=== PATIENT | male | born 1990 | race Caucasian/White ===

== ENCOUNTER 2019-09-21 08:42 | Emergency (ER) | payer MEDICARE, MEDICAID, SELFPAY ==
[2019-09-21 08:44] VITALS: BP 155/102; PULSE 112; RESP 17; TEMP 37.1; O2SAT 96; BMI 30.7
--- NOTE | 2019-09-21 08:56 | ED_ITS ---
Entered by Madeleine Bonds, acting as scribe for Mark Sierra MD Sep 21, 2019 08:42 HPI - URI/Sore Throat General: Chief Complaint: Upper Respiratory Infection Stated Complaint: COUGH Time Seen by Provider: 09/21/19 08:54 Source: patient and family Mode of arrival: ambulatory Limitations: no limitations History of Present Illness: MD elicited complaint: cough, sore throat, nasal congestion and sinus pain Onset (ago): day(s) (3-4 days ago) Consistency: constant Severity: moderate Able to tolerate fluids by mouth: Yes Exacerbating factors: nothing Relieving factors: nothing Associated symptoms: Reports cough, nasal congestion and sore throat; Deny abdominal pain, chills, chest pain, diarrhea, fever(s), headache(s), nausea or vomiting Treatments prior to arrival: other (cough syrup from pcp) Review of Systems Const: Denies: fever, chills, body aches or change in appetite Eyes: Denies: blurry vision or eye discomfort ENMT: Reports: nasal congestion Card: Denies: chest pain Resp: Denies: shortness of breath GI: Denies: abdominal pain, nausea, vomiting or diarrhea : Denies: painful urination Musc: Denies: neck pain or back pain Skin/Breast: Denies: rash Neuro: Denies: headache Psych: Denies: depression Ruperto/Lymph: Denies: easy bruising All/Imm: Denies: hives PFSH ED PFSH: Statuses (acute, chronic, etc) shown below reflect problem list status as previously entered and may not be historically accurate Social History Smoking and tobacco status: never smoked Physical Exam Const: COMMON NORMALS: no apparent distress, oriented x3 and healthy appearing HENMT: COMMON NORMALS: normocephalic and head/scalp atraumatic HEAD & SCALP: normocephalic and atraumatic Eye: COMMON NORMALS: PERRL and EOMs intact bilaterally PUPIL: Yes PERRL Neck/C-Spine: COMMON NORMALS: full ROM and supple Chest: COMMONS NORMALS: inspection of chest normal and palpation of chest normal Resp: COMMON NORMALS: normal respiratory effort, no retractions, no use of accessory muscles and clear to auscultation bilaterally AUSCULTATION: clear to auscultation bilaterally Cardio: COMMON NORMALS: regular rate, regular rhythm and no murmurs RATE: regular rate RHYTHM: regular rhythm GI: COMMON NORMALS: normal to inspection, nondistended, normoactive bowel sounds, soft to palpation, non-tender and no masses PALPATION: Yes soft Extremity: COMMON NORMALS: normal to inspection and full ROM Neuro: COMMON NORMALS: oriented x3, moves all extremities and no focal motor deficits Psych: COMMON NORMALS: mental status grossly normal, thought process normal and cooperative THOUGHT PROCESS: normal thought process Skin: COMMON NORMALS: no rashes or lesions noted and no wounds GENERAL SKIN EXAM: no rashes or lesions noted Course Vital Signs: Vital signs: Vital Signs Temperature 98.7 F 09/21/19 08:44 Pulse Rate 99 09/21/19 11:08 Respiratory Rate 17 09/21/19 11:08 Blood Pressure 155/97 09/21/19 11:08 Pulse Oximetry 97 09/21/19 11:08 MDM - URI/Sore Throat MDM Narrative: Medical decision making narrative: Patient presents here with cough congestion along with sore throat that is likely viral in origin. Patient is well-appearing here and x-ray is normal. Strep is negative as well. Patient has no signs of airway involvement. Patient given Decadron is stable for discharge. He is to follow-up with his primary care doctor in 3 to 5 days return if worsening. Lab Data: Labs: Lab Results 09/21/19 Range/Units 09:28 Group A Strep Rapi d Negative (Negative) Imaging Data^: CXR: Attestation: I personally reviewed and interpreted this imaging study as follows: My impression: no acute abnormality Discharge Plan Discharge Patient Disposition: Home, Self-Care Clinical Impression: Upper respiratory infection Qualifiers: URI type: unspecified viral URI Qualified Code(s): J06.9 - Acute upper respiratory infection, unspecified Condition: Stable Discharge Orders: Discharge Order (Routine); Ordered 09/21/19 Ordered By: Mark Sierra Referrals: Surinder Gonzales MD [Family Provider] - Coding Level of Care Code ED Track Template Maker for [facility] The documentation recorded by the Vamshi cueva Bridget Annette, accurately reflects the service I personally performed and the decisions made by Mariela orr Korby, MD Sep 21, 2019 08:42
--- NOTE | 2019-09-21 08:59 | XR_ITS ---
WS: [id number] Portable AP upright chest, 09/21/2019 Clinical Data: cough/congestion Comparison: PA chest, 06/23/2016 Findings: No nodules, masses or effusions are seen. The heart is normal. The pulmonary vascularity is not increased. No pneumonia or pneumothorax is seen. XR/XR chest 1V portable [id number] Impression: Negative chest.
[2019-09-21] MEDS: acetaminophen 325 mg Tablet 650 MG PO (10:00)
[2019-09-21 10:10] LABS: Rapid Strep A Test Negative (Negative)
[2019-09-21] MEDS: dexamethasone 10 mg/mL INJ IM (11:06)
[2019-09-21 11:08] VITALS: BP 155/97; PULSE 99; RESP 17; O2SAT 97
== END 2019-09-21 11:21 | disposition home or self-care (01) ==
PROVIDERS: Emergency Provider Emergency Medicine; Family Provider Family Medicine
DX: J06.9 Acute upper respiratory infection, unspecified (principal)
CPT/HCPCS: 71045; 87081; 87880; 96372; 99282; 99284; J1100

== ENCOUNTER → 2020-05-08 11:00 | Outpatient (BNVA) | payer MEDICARE, MEDICAID, SELFPAY | PROVIDERS: Family Provider Family Medicine; PCP Family Medicine; Visit Provider Internal Medicine | DX: K52.9 Noninfective gastroenteritis and colitis, unspecified (principal); R19.8 Other specified symptoms and signs involving the digestive system and abdomen | CPT/HCPCS: 80053; 85025; 85651; 86140 ==

== ENCOUNTER 2020-05-09 10:28 | Outpatient (CLI) | payer MEDICARE, MEDICAID, SELFPAY | END 2020-05-09 10:29 | disposition home or self-care (01) | LOC: LAB 10:31 | PROVIDERS: PCP Family Medicine; Visit Provider Internal Medicine | DX: K52.9 Noninfective gastroenteritis and colitis, unspecified (principal); R19.8 Other specified symptoms and signs involving the digestive system and abdomen | CPT/HCPCS: 83993; 87205; 87506 ==

== ENCOUNTER 2020-05-21 10:02 | Outpatient (CLI) | payer MEDICARE, MEDICAID, SELFPAY ==
--- NOTE | 2020-05-21 11:30 | CT_ITS ---
WS: [id number] CT ABDOMEN PELVIS TECHNIQUE: Contrast-enhanced CT of the abdomen and pelvis with coronal and sagittal reformatted image s. CLINICAL INFORMATION: R/O IBD COMPARISON: 4 ,019 DLP: 1276.[address] scans at [facility] use at least one of these dose optimization techniques: automat ed exposure control; mA and/or kV adjustment per patient size (includes targeted exams where dose is matched to clinical indication); or iterative reconstruction. FINDINGS: Normal liver parenchyma enhancement. Normal gallbladder. Normal portal vein and splenic vein. Normal pancreas. Spleen is normal in appearance. Normal GE junction. Lung bases are well aerated. Adrenal glands are normal. Normal renal parenchymal enhancement. No hydronephrosis. Ureters are decom pressed. Normal sigmoid colon. No evidence of small or large bowel obstruction. Very mild thickening and induration in the transvers e colon can be seen with infectious or inflammatory colitis. Small and large bowel are otherwise norm al in appearance. No abdominal or pelvic lymphadenopathy. No inguinal lymphadenopathy. No free fluid in the pelvis. Mild disc bulging L5-S1 with bilateral pars defects. No anterolisthesis. Serpiginous areas of sclerosis in the femoral heads bilaterally unchanged likely due to avascular nec rosis. CT/CT abdomen pelvis w con* [id number] IMPRESSION: 1. Mild thickening of the transverse colon with slight induration can be seen with mild infectious or inflammatory colitis. Colon is decompressed. 2. No evidence of small or large bowel obstruction. Small and large bowel are otherwise normal 3. No free fluid in the pelvis. 4. No abdominal or pelvic lymphadenopathy. 5. Chronic bilateral pars defects L5-S1. No anterolisthesis. 6. Serpiginous areas of sclerosis in the femoral heads bilaterally unchanged l ikely due to avascular necrosis.
[2020-05-21] MEDS: iohexol 300 mg/mL 100 mL Btl IV (11:34)
== END 2020-05-21 10:03 | disposition home or self-care (01) ==
LOC: RADWPI 10:09
PROVIDERS: Family Provider Family Medicine; PCP Family Medicine; Visit Provider Internal Medicine
DX: R19.8 Other specified symptoms and signs involving the digestive system and abdomen (principal)
CPT/HCPCS: 74177; Q9967

== ENCOUNTER → 2020-05-28 14:02 | Outpatient (BNVA) | payer MEDICARE, MEDICAID, SELFPAY | PROVIDERS: Family Provider Family Medicine; PCP Family Medicine; Referring Provider Family Medicine; Visit Provider Orthopaedic Surgery | DX: M87.88 Other osteonecrosis, other site (principal); M25.552 Pain in left hip; M25.551 Pain in right hip | CPT/HCPCS: 73522; 73523 ==

== ENCOUNTER 2020-06-11 14:33 | Outpatient (CLI) | payer MEDICARE, MEDICAID, SELFPAY ==
--- NOTE | 2020-06-11 15:15 | MR_ITS ---
WS: [id number] INDICATION: Bilateral hip pain for 2 years. AVN. TECHNIQUE: MRI bilateral hips without gadolinium enhancement. Axial T1, axial T2, coronal T1, coronal STIR, sagittal T2 and sagittal T1 imaging. FINDINGS: Correlation prior CT abdomen pelvis May 21, 2020. Serpiginous areas of bone marrow signal abnormality in both femoral heads bilaterally subchondral in location. This corresponds to the sclerotic areas seen on the CT abdomen pelvis and radiograph. Small amount of associated T2 hyperintensity. Appearance most consistent with avascular necrosis. No evide nce of subchondral collapse. Articular cartilage appears relatively well-preserved. Bone marrow signa l in the remainder of the femoral head and neck appears normal. Normal bone marrow signal in the acetabulum and pubic symphysis. Normal pubic rami. Normal bone marro w signal in the visualized sacrum. Proximal femoral shafts are normal in appearance. Normal visualize d sigmoid colon. No pelvic or inguinal lymphadenopathy. MR/MR hips BI wo con [id number] IMPRESSION: 1. Serpiginous decreased T1 and increased T2 signal abnormality involving the femoral heads in a symmetric fashion corresponds to the prior imaging findings most compatible with avascular necrosis. 2. No evidence of subchondral articular surface collapse. Articular cartilage appears relatively well-preserved. 3. Otherwise no signal abnormalities in the femoral necks or proximal femurs. Normal acetabulum. 4. Normal bone marrow signal in the visualized pelvic bony structures and sacr um. 5. No other significant findings.
== END 2020-06-11 14:34 | disposition home or self-care (01) ==
LOC: RADSHAW 14:37
PROVIDERS: PCP Family Medicine; Visit Provider Orthopaedic Surgery
DX: M87.059 Idiopathic aseptic necrosis of unspecified femur (principal); M25.552 Pain in left hip; M25.551 Pain in right hip
CPT/HCPCS: 73721

== ENCOUNTER → 2020-09-11 07:50 | Outpatient (BNVA) | payer MEDICARE, MEDICAID, SELFPAY | PROVIDERS: PCP Family Medicine; Visit Provider Internal Medicine | DX: K52.9 Noninfective gastroenteritis and colitis, unspecified (principal); R19.8 Other specified symptoms and signs involving the digestive system and abdomen; Z01.812 Encounter for preprocedural laboratory examination | CPT/HCPCS: 82784; 83516; 84443; 85651 ==

== ENCOUNTER → 2020-09-15 10:22 | Outpatient (BNVA) | payer MEDICARE, MEDICAID, SELFPAY | PROVIDERS: PCP Family Medicine; Visit Provider Internal Medicine | DX: Z01.812 Encounter for preprocedural laboratory examination (principal); Z20.828 Contact with and (suspected) exposure to other viral communicable diseases | CPT/HCPCS: 87635 ==

== ENCOUNTER → 2020-09-17 11:28 | Outpatient (BNVA) | payer MEDICARE, MEDICAID, SELFPAY | PROVIDERS: PCP Family Medicine; Visit Provider Internal Medicine | DX: J06.9 Acute upper respiratory infection, unspecified (principal) | CPT/HCPCS: 87635 ==

== ENCOUNTER 2020-09-29 07:15 | Day surgery (SDC) | payer MEDICARE, MEDICAID, SELFPAY ==
[2020-09-25 14:00] VITALS: BMI 31.4
[2020-09-29 08:02] VITALS: BP 140/107; PULSE 96; RESP 16; TEMP 36.8; O2SAT 100
[2020-09-29] MEDS: sodium chloride 0.9% 1,000 ML 30 ML IV (08:12)
--- NOTE | 2020-09-29 08:22 | W.PM.OPSUD ---
Surgery/Procedure H&P Update DATE OF PROCEDURE: September 29, 2020 DATE H&P PERFORMED: 09/11/20 PREOP DIAGNOSIS: dbl PLANNED PROCEDURE: Operation Date: 09/29/20 09:00 Proposed Procedures p EGD [id number] K52.9(Bilateral) - Leonides Shelley MD s Colonoscopy(Not Applicable) - Leonides Shelley MD
[2020-09-29] MEDS: midazolam 1 mg/mL INJ 2 mL 2 MG IVP (08:34)
--- NOTE | 2020-09-29 08:49 | ANES.PREANE2 ---
Pre-Anesthetic Assessment Pre-Anesthetic Assessment: Height/Weight: Height 1.78 m Weight 99.337 kg Temp Pulse Resp BP Pulse Ox 98.2 F 96 16 140/107 100 09/29/20 08:02 09/29/20 08:02 09/29/20 08:02 09/29/20 08:02 09/29/20 08:02 Preop Diagnosis: dbl Proposed Procedure: Operation Date: 09/29/20 09:00 Proposed Procedures p EGD [id number] K52.9(Bilateral) - Leonides Shelley MD s Colonoscopy(Not Applicable) - Leonides Shelley MD Was Beta Carlos taken within 24 hours: N/A Last intake: Intake Last Liquid Date 09/28/20 Last Liquid Time 21:00 Last Solid Date 09/28/20 Last Solid Time 06:00 Social: Social History: No alcohol and No tobacco Exam: Pre-Anes Outpt Exam: alert, oriented x 3, clear to auscultation bilaterally and regular rate & rhythm Airway: Submandibular: WNL Cervical ROM: WNL MP: 2 Dentition: Full CV/HEM: CV/HEM: HTN GI: GI: GERD Comments: Chronic diarrhea, IBS Metabolic: Metabolic: Morbid obesity Anesthetic Plan: ASA status: 3 Anesthesia: MAC Risk of > 500 ml blood loss (7ml/kg in children): No Meds/Allergies Current Medications: Current Medications Generic Name Dose Route Start Last Admin Trade Name Freq PRN Reason Stop Dose Admin Sodium Chloride 1,000 mls @ 30 ml s/hr 09/29/20 08:00 09/29/20 08:12 Sodium Chloride 0.9% IV 09/30/20 07:59 30 mls/hr .Q24H JASSON Administration Midazolam HCl 2 mg 09/29/20 07:55 09/29/20 08:34 Midazolam 1 Mg/M l Inj 2 Ml IVP 2 mg Q5M PRN Administration Preop Anxiety PFSH Anesthesia PFSH: Medical History (Updated 09/11/20 @ 10:25 by Leonides Shelley MD) Allergic rhinitis GERD (gastroesophageal reflux disease) H/O Helicobacter infection H/O methicillin resistant Staphylococcus aureus Low back pain Surgical History H/O circumcision H/O colonoscopy 07/29/16 Recheck in 10 years H/O esophagogastroduodenoscopy 07/29/16 Family History Other Adopted Social History Smoking and tobacco status: never smoked Alcohol intake: never Adopted: Yes Lives independently: Yes Marital status: Single Current occupational status: disabled History of recent travel: No Data Anesthesia Cardiac Studies: No Data to Display
[2020-09-29 09:43] VITALS: BP 129/94; PULSE 107; RESP 14; TEMP 36.6; O2SAT 96
[2020-09-29 10:08] VITALS: BP 133/102; PULSE 93; RESP 18; TEMP 36.6; O2SAT 99
--- NOTE | 2020-09-29 10:42 | ANE.PACU2 ---
Inpatient post-anesthesia follow up: Airway intact: Yes Vital signs: Temperature 97.8 F Pulse Rate 93 Respiratory Rate 18 Blood Pressure 133/102 Pulse Oximetry 99 Oxygen Delivery Me thod Room Air Oxygen Flow Rate 0 Fraction of Inspir ed Oxygen Hydration adequate: Yes Mental status: Baseline
--- NOTE | 2020-09-29 11:37 | ANE.PACU2 ---
Inpatient post-anesthesia follow up: Airway intact: Yes Vital signs: Temperature 97.8 F Pulse Rate 93 Respiratory Rate 18 Blood Pressure 133/102 Pulse Oximetry 99 Oxygen Delivery Me thod Room Air Oxygen Flow Rate 0 Fraction of Inspir ed Oxygen Hydration adequate: Yes Nausea and vomiting: No Pain level: 1 Mental status: Baseline
== END 2020-09-29 10:23 | disposition home or self-care (01) ==
PROVIDERS: PCP Family Medicine; Visit Provider Internal Medicine
PROC: 0DJ08ZZ Inspection of Upper Intestinal Tract, Via Natural or Artificial Opening Endoscopic (ICD-10-PCS; CPT 43235; principal; 2020-09-29 09:00)
PROC: 0DJD8ZZ Inspection of Lower Intestinal Tract, Via Natural or Artificial Opening Endoscopic (ICD-10-PCS; CPT 45378; 2020-09-29 09:00)
DX: R19.8 Other specified symptoms and signs involving the digestive system and abdomen (principal); K52.9 Noninfective gastroenteritis and colitis, unspecified; I10 Essential (primary) hypertension; K21.9 Gastro-esophageal reflux disease without esophagitis; E66.01 Morbid (severe) obesity due to excess calories; Z68.31 Body mass index [BMI] 31.0-31.9, adult
CPT/HCPCS: 12345; 43239; 45380; 82274; 83630; 87493; 87506; 88305; J2250; J2704; J7030

== ENCOUNTER → 2022-01-21 13:12 | Outpatient (BNVA) | payer MEDICARE, MEDICAID, SELFPAY | PROVIDERS: PCP Family Medicine; Visit Provider Surgery | DX: R10.9 Unspecified abdominal pain (principal); K58.9 Irritable bowel syndrome, unspecified; R19.8 Other specified symptoms and signs involving the digestive system and abdomen | CPT/HCPCS: 99213 ==

== ENCOUNTER 2022-03-01 08:25 | Outpatient (CLI) | payer MEDICARE, MEDICAID, SELFPAY ==
--- NOTE | 2022-03-01 08:30 | US_ITS ---
WS: [id number] RIGHT UPPER QUADRANT ULTRASOUND HISTORY: chronic diarrhea COMPARISON: CT 05/21/2020 and prior ultrasound 10/06/2018 Liver: 15.8 cm in length. Normal size liver with coarse heterogeneous echotexture. Focal fatty sparin g adjacent to the gallbladder. There is an additional hypoechoic nodule in the LEFT lobe of the liver measuring 1.4 x 1.3 x 1.8 cm. No increased vascularity. This was not identified on prior imaging sintia dies. Portal Vein: Normal hepatopetal flow with monophasic waveform. Gallbladder: Normally distended gallbladder with no stones or wall thickening. CBD: 0.4 cm Pancreas: Not well visualized. Right kidney: 9.2 cm in length. Normal size and echogenicity. No hydronephrosis or mass. Aorta and IVC: Unremarkable abdominal aorta and IVC. No ascites. US/US gall bladder [id number] IMPRESSION: 1. Normal gallbladder. 2. Hypoechoic nodule with a maximum diameter 1.8 cm LEFT lobe of the liver. Ne eds further evaluation. This was not present on prior imaging studies. Recommen d follow-up CT abdomen and pelvis with contrast. Early metastatic neoplasm need s to be excluded. 3. No bile duct dilatation. 4. Focal fatty sparing adjacent to the gallbladder.
== END 2022-03-01 08:26 | disposition home or self-care (01) ==
PROVIDERS: Visit Provider Surgery
DX: K52.9 Noninfective gastroenteritis and colitis, unspecified (principal); R10.9 Unspecified abdominal pain
CPT/HCPCS: 76705

== ENCOUNTER → 2022-03-03 09:29 | Outpatient (BNVA) | payer MEDICARE, MEDICAID, SELFPAY | PROVIDERS: PCP Family Medicine; Visit Provider Nurse Practitioner Family | DX: M87.051 Idiopathic aseptic necrosis of right femur (principal); M87.052 Idiopathic aseptic necrosis of left femur; M79.2 Neuralgia and neuritis, unspecified; M25.551 Pain in right hip; M25.552 Pain in left hip | CPT/HCPCS: 73523; 99214 ==

== ENCOUNTER 2022-03-18 09:09 | Outpatient (CLI) | payer MEDICARE, MEDICAID, SELFPAY ==
--- NOTE | 2022-03-18 09:30 | MR_ITS ---
WS: [id number] MRI LUMBAR SPINE NONCONTRAST TECHNIQUE: Sagittal T1, T2 and STIR imaging. Axial T1 and T2 imaging. CLINICAL INFORMATION: Bilateral hip pain COMPARISON: None. FINDINGS: Mild lumbar curve. No acute compression. No high-grade central canal stenosis. Chronic bilateral pars defects L5-S1. No anterolisthesis.Disc bulging worse L5-S1 with a shallow LEFT pericentral protrusio n and small annular fissure. L1-L2: Mild facet arthropathy. Spinal canal and foramen are patent. L2-L3: Mild facet arthropathy. Spinal canal and foramen are patent. L3-L4: No significant disc bulging. Mild facet arthropathy. Spinal canal and foramen are patent. L4-L5: No significant disc bulging. Mild facet arthropathy. Spinal canal and foramen are patent. L5-S1: Shallow LEFT pericentral protrusion with a small annular fissure. Slight impingement traversin g LEFT S1 nerve root in the subarticular recess. Eccentric disc bulging results in mild bilateral for aminal narrowing with slight contact of the exiting RIGHT greater than LEFT L5 nerve roots. Mild face t arthropathy. Visualized pelvic bony structures: Normal. Paravertebral soft tissues: Normal. MR/MR lumbar spine wo con* [id number] IMPRESSION: 1. Mild lumbar curve. No acute compression. No high-grade central canal stenos is. 2. Chronic bilateral pars defects L5-S1. No anterolisthesis. 3. Shallow LEFT pericentral protrusion L5-S1 with a small annular fissure. Thi s impinges the traversing LEFT S1 nerve root in the subarticular recess. Recomm end correlation LEFT S1 nerve root symptoms. 4. Eccentric disc bulging L5-S1 contacts the exiting RIGHT greater than LEFT L 5 nerve roots. 5. Mild facet arthropathy worse at L3-L4 and L5-S1. 6. No other significant findings.
== END 2022-03-18 09:10 | disposition home or self-care (01) ==
PROVIDERS: PCP Family Medicine; Visit Provider Nurse Practitioner Family
DX: M25.551 Pain in right hip (principal); M25.552 Pain in left hip; M51.27 Other intervertebral disc displacement, lumbosacral region; M47.816 Spondylosis without myelopathy or radiculopathy, lumbar region; M47.817 Spondylosis without myelopathy or radiculopathy, lumbosacral region
CPT/HCPCS: 72148

== ENCOUNTER 2022-03-26 13:29 | Outpatient (CLI) | payer MEDICARE, MEDICAID, SELFPAY ==
[2022-03-26] MEDS: barium sulfate 450 mL Oral Susp PO (14:15)
[2022-03-26] MEDS: iohexol 350 mg/mL 100 mL Btl IV (15:18)
--- NOTE | 2022-03-26 15:30 | CT_ITS ---
WS: [id number] CT ABDOMEN AND PELVIS WITH CONTRAST HISTORY: Liver Mass TECHNIQUE: Imaging performed of the abdomen and pelvis with IV contrast. Single phase imaging of the abdomen. Coronal and sagittal reformats are submitted. All CT scans at [facility] use at [facility] one of these dose optimization techniques: automated exposure control; mA and/or kV adjustment per patient size (includes targeted exams where dose is matched to clinical indication); or iterative re construction. IV CONTRAST: Omnipaque 350; 95 mL IV. Oral contrast: No DLP: 1460.73 mGy.cm COMPARISON: Gallbladder ultrasound 03/01/2022. Prior CT 05/21/2020. Lower thorax: Lung bases are clear. Heart is normal size. Small hiatal hernia. Liver/biliary system: Normal size liver. The previously described hypoechoic nodule on the recent ult rasound is not identified by CT evaluation. Suspect this was an area of hepatic steatosis or focal fa tty sparing which is not evident on the CT. No bile duct dilatation. Normal portal vein. Gallbladder: Normal. No gallstones or wall thickening. No pericholecystic fluid. Pancreas: Normal size pancreas and pancreatic duct. No adjacent inflammation. Spleen: Normal size spleen. No mass or infarct. Adrenal glands: Normal. Right kidney: Normal. Left kidney: Normal. Aorta: Normal. Lymphadenopathy: None. Small subcentimeter RIGHT lower quadrant lymph nodes. Similar to the prior sintia dy from 2019. Free fluid: None. GI tract: Unremarkable. Abdominal wall: Fat containing umbilical hernia. Pelvis: No free fluid or adenopathy within the pelvis. Bones: Bilateral pars defects at L5. 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 Similar to the prior study from 05/21/2020. CT/CT abdomen pelvis w con* [id number] IMPRESSION: 1. Recently described ultrasound hepatic abnormality is not identified by CT. Favor this is probably normal variable changes of hepatic steatosis. No mass or bile duct dilatation. 2. No adrenal mass. 3. No ascites or adenopathy.
== END 2022-03-26 13:30 | disposition home or self-care (01) ==
PROVIDERS: PCP Family Medicine; Visit Provider Surgery
DX: R16.0 Hepatomegaly, not elsewhere classified (principal)
CPT/HCPCS: 74177

== ENCOUNTER → 2022-04-06 08:03 | Outpatient (BNVA) | payer MEDICARE, MEDICAID, SELFPAY | PROVIDERS: PCP Family Medicine; Visit Provider Orthopaedic Surgery | DX: M54.50 Low back pain, unspecified (principal) | CPT/HCPCS: 72110; 99204 ==

== ENCOUNTER → 2022-04-27 08:57 | Outpatient (BNVA) | payer MEDICARE, MEDICAID, SELFPAY | PROVIDERS: PCP Family Medicine; Visit Provider Anesthesiology Pain Medicine | DX: M48.062 Spinal stenosis, lumbar region with neurogenic claudication (principal); M51.16 Intervertebral disc disorders with radiculopathy, lumbar region; M47.816 Spondylosis without myelopathy or radiculopathy, lumbar region; M79.605 Pain in left leg; M79.604 Pain in right leg | CPT/HCPCS: 99205 ==

== ENCOUNTER 2022-05-04 07:28 | Outpatient (CLI) | payer MEDICARE, MEDICAID, SELFPAY ==
--- NOTE | 2022-05-04 08:00 | NM_ITS ---
WS: [id number] NUCLEAR MEDICINE HIDA SCAN CLINICAL INFORMATION: abd pain TECHNIQUE: Following intravenous administration of 8.4 mCi of technetium 99m mebrofenin, images of th e abdomen were obtained over the course of 60 minutes. Next, gallbladder ejection fraction was determ ined by obtaining preprandial and one-hour postprandial images of the gallbladder following oral emilie stion of Ensure. COMPARISON: 3 ,019 FINDINGS: Normal hepatic uptake at 5 minutes. Normal hepatic excretion. Gallbladder is visualized by 10-15 sai ana. No evidence of acute cholecystitis. Normal common bile duct and small bowel activity. Gallbladder ejection fraction 86% within normal deleon its. No evidence of chronic cholecystitis. NM/NM hepatobiliary w phar* [id number] IMPRESSION: 1. No evidence of acute or chronic cholecystitis. 2. Gallbladder ejection fraction 86% within normal limits.
== END 2022-05-04 07:29 | disposition home or self-care (01) ==
PROVIDERS: PCP Family Medicine; Visit Provider Surgery
DX: R10.9 Unspecified abdominal pain (principal)
CPT/HCPCS: 78227; A9537

== ENCOUNTER → 2022-05-19 12:58 | Outpatient (BNVA) | payer MEDICARE, MEDICAID, SELFPAY | PROVIDERS: PCP Family Medicine; Visit Provider Surgery | DX: Z09 Encounter for follow-up examination after completed treatment for conditions other than malignant neoplasm (principal); K52.9 Noninfective gastroenteritis and colitis, unspecified | CPT/HCPCS: 99213 ==

== ENCOUNTER → 2022-07-27 13:10 | Outpatient (BNVA) | payer MEDICARE, MEDICAID, SELFPAY | PROVIDERS: PCP Family Medicine; Visit Provider Anesthesiology Pain Medicine | DX: M54.16 Radiculopathy, lumbar region (principal); M48.062 Spinal stenosis, lumbar region with neurogenic claudication | CPT/HCPCS: 64483; 64484 ==

== ENCOUNTER 2022-08-04 09:01 | Emergency (ER) | payer MEDICARE, MEDICAID, SELFPAY ==
[2022-08-04] VITALS (36 sets, daily range): BP systolic 120–155; BP diastolic 80–113; PULSE 84–109; RESP 15–18; TEMP 36.6–36.7; O2SAT 94–98; BMI 32.3
[2022-08-04 11:10] LABS: Basophils # 0.1 10^3/uL (0.0-0.1); Basophils % 0.7 %; Eosinophils # 0.1 10^3/uL (0.0-0.8); Eosinophils % 1.1 %; Hematocrit 49.4 % (42.0-52.0); Hemoglobin 16.5 g/dL (11.7-16.6); Lymphocytes # 3.7 10^3/uL (0.8-4.8); Lymphocytes % 45.6 %; Mean Corpuscular HGB Conc 33.4 g/dL (30.0-36.0); Mean Corpuscular Hemoglobin 29.8 pg (28.0-34.0); Mean Corpuscular Volume 89.3 fl (80-94); Mean Platelet Volume 10.2 fL (7.4-10.4); Monocytes # 0.8 10^3/uL (0.2-0.9); Monocytes % 10.1 %; Neutrophils # 3.41 10^3/uL (1.8-7.7); Nucleated Red Blood Cells % 0 %; Platelet Count 287 10^3/cmm (130-400); Red Blood Count 5.53 10^6/uL (4.1-5.3); White Blood Count 8.1 10^3/uL (4.0-10.0)
[2022-08-04 11:29] LABS: Albumin Level 4.9 g/dL (3.5-5.2); Alkaline Phosphatase 83 U/L (40-130); Anion Gap 14.6 (5-19); Aspartate Amino Transferase 22 U/L (0-40); Blood Urea Nitrogen 13 mg/dL (6-20); Calcium 10.2 mg/dL (8.5-10.5); Carbon Dioxide 29 mmol/L (22-29); Chloride 100 mmol/L (98-107); Globulin 3.5 g/dL (1.3-4.6); Glomerular Filtration Rate 85.5 mL/min (90-130); Glucose 92 mg/dL (65-115); Lipase 31 U/L (13-60); Osmolality Calculated 288 mOsm/kg (285-295); Potassium 4.6 mmol/L (3.5-5.1); Sodium 139 mmol/L (136-145); Total Bilirubin 0.4 mg/dL (0.15-1.2); Total Protein 8.4 g/dL (6.6-8.7)
--- NOTE | 2022-08-04 11:32 | ED_ITS ---
HPI - Abdominal Pain General: Chief Complaint: Abdominal Pain Stated Complaint: n/v/abd pain Time Seen by Provider: 08/04/22 10:56 Source: patient Mode of arrival: ambulatory History of Present Illness: 32-year-old male presents emergency room for abdominal discomfort and diarrhea. He had a colonoscopy earlier this week he states since then he has been having bloating abdominal discomfort and frequent diarrhea denies any medic easy melena hematemesis coffee-ground emesis no fever sweats or chills no dysuria urgency or frequency. MD elicited complaint: abdominal pain Pertinent past history: none Onset (ago): minute(s) Pain Consistency: constant Location: Diffuse Severity: mild Quality: cramping Radiation: none Exacerbating factors: nothing Relieving factors: nothing Associated Symptoms: Reports GI cramping, diarrhea and poor appetite; Denies anorexia, belching, bloating, change in bowel habits, change in stool character, chills, coffee ground emesis, constipation, dyspepsia, dysuria, excessive flatus, fever(s), heartburn, hematochezia, hematuria, hematemesis, fecal incontinence, loose stools, melena, nausea, syncope and vomiting Review of Systems Const: Denies: fever(s), chills, fatigue or malaise ENMT: Denies: throat pain, ear or mastoid pain, nasal discharge or nasal congestion Card: Denies: syncope Resp: Denies: dyspnea, productive cough or non-productive cough GI: Reports: diarrhea and GI cramping; Denies: nausea, vomiting, hematemesis, coffee ground emesis, heartburn, constipation, bloating, belching, excessive flatus, fecal incontinence, change in bowel habits, change in stool character, hematochezia or melena : Denies: dysuria, urinary frequency, urinary urgency or hematuria Musc: Denies: neck pain or back pain Skin/Breast: Denies: rash or pruritus PFSH ED PFSH: Medical History (Updated 08/04/22 @ 13:16 by Souleymane Montejo DO) Allergic rhinitis GERD (gastroesophageal reflux disease) H/O Helicobacter infection H/O methicillin resistant Staphylococcus aureus Low back pain Surgical History H/O circumcision H/O colonoscopy 07/29/16 Recheck in 10 years H/O esophagogastroduodenoscopy 07/29/16 Family History Other Adopted Social History Smoking and tobacco status: never smoked Second hand smoke exposure: No Alcohol intake: never Adopted: Yes Lives independently: Yes Marital status: Single Current occupational status: disabled History of recent travel: No Physical Exam Const: GENERAL APPEARANCE: cooperative and comfortable ORIENTATION/CONSCIOUSNESS: Yes awake, Yes oriented to person, Yes oriented to place and Yes oriented to time HENMT: COMMON NORMALS: normocephalic, atraumatic and hearing grossly normal bilaterally HEAD & SCALP: normocephalic and atraumatic Resp: COMMON NORMALS: normal respiratory effort, No retractions, No use of accessory muscles and clear to auscultation bilaterally AUSCULTATION: clear to auscultation bilaterally Cardio: COMMON NORMALS: regular rate, regular rhythm and No murmurs present (Cardio) RATE: regular rate RHYTHM: regular rhythm GI: COMMON NORMALS: No hepatosplenomegaly present AUSCULTATION: Yes normoactive bowel sounds PALPATION: Yes Tenderness to palpation present (GI), No Guarding due to palpation present (GI) and Yes No hepatosplenomegaly present Extremity: COMMON NORMALS: normal to inspection, capillary refill normal, no clubbing, cyanosis or edema, no calf tenderness and no pedal edema Neuro: SENSORIUM/ORIENTATION: Yes oriented to person, Yes oriented to place and Yes oriented to time Skin: COMMON NORMALS: no rashes or lesions noted GENERAL SKIN EXAM: no rashes or lesions noted Course Vital Signs: Vital signs: Vital Signs Temperature 97.8 F 08/04/22 10:52 Pulse Rate 95 08/04/22 10:52 Respiratory Rate 18 08/04/22 10:52 Blood Pressure 136/103 08/04/22 12:50 Pulse Oximetry 96 08/04/22 12:50 Oxygen Delivery Me thod 08/04/22 10:52 MDM - Abdominal Pain Medical Decision Making Exam unremarkable CT and labs no significant findings reviewed with the patient. Discharge home clear liquid diet for 24 to 48 hours and advance as tolerated use Bentyl as needed return if is further problems Medical Records I reviewed the patient's medical records. Lab Data I reviewed the patient's lab results. 08/04/22 11:03 08/04/22 11:03 Labs/Radiology: Radiology Impressions Abdomen/Pelvis CT 08/04/22 11:32 IMPRESSION: No acute abdominal or pelvic findings. Laboratory Results WBC 8.1 10^3/uL (4.0-10.0) 08/04/22 11:03 RBC 5.53 10^6/uL (4.1-5.3) H 08/04/22 11:03 Hgb 16.5 g/dL (11.7-16.6) 08/04/22 11:03 Hct 49.4 % (42.0-52.0) 08/04/22 11:03 MCV 89.3 fl (80-94) 08/04/22 11:03 MCH 29.8 pg (28.0-34.0) 08/04/22 11:03 MCHC 33.4 g/dL (30.0-36.0) 08/04/22 11:03 RDW 12.0 % (12.1-15.1) L 08/04/22 11:03 Plt Count 287 10^3/cmm (130-400) 08/04/22 11:03 MPV 10.2 fL (7.4-10.4) 08/04/22 11:03 Neut % (Auto) 42.0 % 08/04/22 11:03 Lymph % (Auto) 45.6 % 08/04/22 11:03 [place] % (Auto) 10.1 % 08/04/22 11:03 Eos % (Auto) 1.1 % 08/04/22 11:03 Baso % (Auto) 0.7 % 08/04/22 11:03 Neut # (Auto) 3.41 10^3/uL (1.8-7.7) 08/04/22 11:03 Lymph # (Auto) 3.7 10^3/uL (0.8-4.8) 08/04/22 11:03 [place] # (Auto) 0.8 10^3/uL (0.2-0.9) 08/04/22 11:03 Eos # (Auto) 0.1 10^3/uL (0.0-0.8) 08/04/22 11:03 Baso # (Auto) 0.1 10^3/uL (0.0-0.1) 08/04/22 11:03 Nucleated RBC % (auto) 0 % 08/04/22 11:03 Nucleated RBCs # 0.0 /100WBC 08/04/22 11:03 Sodium 139 mmol/L (136-145) 08/04/22 11:03 Potassium 4.6 mmol/L (3.5-5.1) 08/04/22 11:03 Chloride 100 mmol/L (98-107) 08/04/22 11:03 Carbon Dioxide 29 mmol/L (22-29) 08/04/22 11:03 Anion Gap 14.6 (5-19) 08/04/22 11:03 BUN 13 mg/dL (6-20) 08/04/22 11:03 Creatinine 1.0 mg/dL (0.7-1.2) 08/04/22 11:03 GFR Calculation 85.5 mL/min (90-130) L 08/04/22 11:03 Glucose 92 mg/dL (65-115) 08/04/22 11:03 Calculated Osmolality 288 mOsm/kg (285-295) 08/04/22 11:03 Calcium 10.2 mg/dL (8.5-10.5) 08/04/22 11:03 Total Bilirubin 0.4 mg/dL (0.15-1.2) 08/04/22 11:03 AST 22 U/L (0-40) 08/04/22 11:03 ALT 37 U/L (0-41) 08/04/22 11:03 Alkaline Phosphatase 83 U/L (40-130) 08/04/22 11:03 Total Protein 8.4 g/dL (6.6-8.7) 08/04/22 11:03 Albumin 4.9 g/dL (3.5-5.2) 08/04/22 11:03 Globulin 3.5 g/dL (1.3-4.6) 08/04/22 11:03 Lipase 31 U/L (13-60) 08/04/22 11:03 Urine Color Yellow (Yellow) 08/04/22 11:03 Urine Appearance Clear (CLEAR) 08/04/22 11:03 Urine pH 5 (5-7) 08/04/22 11:03 Ur Specific [place] 1.015 (1.005-1.030) 08/04/22 11:03 Urine Protein Neg (Negative) 08/04/22 11:03 Urine Glucose (UA) Norm (Normal) 08/04/22 11:03 Urine Ketones Negative (Negative) 08/04/22 11:03 Urine Blood Neg (Negative) 08/04/22 11:03 Urine Nitrate Negative (Negative) 08/04/22 11:03 Urine Bilirubin Neg (Negative) 08/04/22 11:03 Urine Urobilinogen Norm mg/dL (Negative) 08/04/22 11:03 Ur Leukocyte Esterase Negative (Negative) 08/04/22 11:03 Discharge Plan Discharge Patient Disposition: Home Clinical Impression: Abdominal pain Condition: Stable Prescriptions: New ondansetron HCl 4 mg tablet 4 mg PO Q6H PRN (Reason: nausea and vomiting) Qty: 20 0RF dicyclomine 20 mg tablet 20 mg PO QID PRN (Reason: abd cramping) Qty: 20 0RF No Action hydroxyzine HCl 25 mg tablet 25 mg PO BID PRN (Reason: itching) levocetirizine [Xyzal] 5 mg tablet 5 mg PO QAM pantoprazole 40 mg tablet,delayed release (DR/EC) 40 mg PO QAM Qty: 90 3RF tizanidine 4 mg tablet 4 mg PO BID PRN (Reason: muscle spasticity) Qty: 60 0RF gabapentin 300 mg capsule 300 mg PO TID Qty: 90 0RF Apple Cider Vinegar Gummies 2 tab PO QAM amoxicillin 500 mg capsule 1,000 mg PO BID Rx Instructions: for 14 days(rx filled 07/22/22) albuterol sulfate 2.5 mg /3 mL (0.083 %) solution for nebulization 2.5 mg inhalation TID PRN (Reason: Shortness Of Breath) clarithromycin 500 mg tablet 500 mg PO BID Rx Instructions: for 14 days (rx filled 07/22/22) ondansetron HCl 8 mg tablet 8 mg PO Q8H PRN (Reason: Nausea And Vomiting) lansoprazole 30 mg capsule,delayed release(DR/EC) 30 mg PO BID Rx Instructions: for 14 days hyoscyamine sulfate 0.125 mg tablet, sublingual 0.125 mg PO Q4H PRN (Reason: Cramps) albuterol sulfate 90 mcg/actuation HFA aerosol inhaler 2 puff INHALATION QID PRN (Reason: Shortness Of Breath) Adult Multivitamin Gummies 200 mcg Tablet,Chewable 2 tab PO QAM melatonin 5 mg Tablet,Chewable 5 mg PO BEDTIME PRN (Reason: Sleep) Singulair 10 mg tablet 10 mg PO QAM naproxen 500 mg tablet 500 mg PO BID PRN (Reason: Pain) Discharge Orders: Discharge ED (Routine); Ordered 08/04/22 Ordered By: Souleymane Montejo Referrals: Surinder Gonzales MD [Primary Care Provider] - Patient Instructions: Abdominal Pain (ED), Opioid Safety, Pain Management Activity Restrictions/Additional Instructions: You were seen for abdominal cramping and diarrhea that began after your colonoscopy. CT of the abdomen was negative laboratory studies including CBC and CMP were also unremarkable. Recommend that you use clear liquid diet for the next several days use Bentyl as needed for abdominal pain and cramping and follow-up with your primary care doctor if you are not improving. Coding Level of Care Code ED Hair Boiler Operator for Chg Fwd Exam Detailed
--- NOTE | 2022-08-04 11:32 | CT_ITS ---
WS: [id number] CT ABDOMEN PELVIS TECHNIQUE: Noncontrast CT of the abdomen and pelvis with coronal and sagittal reformatted images. CLINICAL INFORMATION: Abdominal pain COMPARISON: None. DLP: 1133.[address] scans at [facility] use at least one of these dose optimization techniques: automated e xposure control; mA and/or kV adjustment per patient size (includes targeted exams where dose is matc hed to clinical indication); or iterative reconstruction. FINDINGS: No free air. Normal sigmoid colon. Colon is otherwise decompressed. No evidence of small or large bow el obstruction. Normal GE junction. M appears normal. Normal duodenum. No evidence of small bowel obstruction. No margaux e fluid in the abdomen or pelvis. Small fat-containing LEFT inguinal hernia. Lung bases are well aera kelli. Noncontrast liver is normal. Normal noncontrast gallbladder. Adrenal glands are normal. No hydro nephrosis in either kidney. Normal noncontrast spleen. Noncontrast pancreas is normal. Normal caliber abdominal aorta. No free fluid in the abdomen or pelvis. Bilateral pars defects L5-S1. No significant anterolisthesis. CT/CT abdomen pelvis wo con [id number] IMPRESSION: No acute abdominal or pelvic findings.
[2022-08-04] MEDS: sodium chloride 0.9% 1,000 ML 999 ML IV (11:36)
[2022-08-04 11:40] LABS: Alanine Aminotransferase 37 U/L (0-41)
[2022-08-04 11:41] LABS: Add Urine Microscopic? NO; Charge for UA Resulting for Rev
[2022-08-04 11:51] LABS: Bilirubin Urine Neg (Negative); Blood Urine Neg (Negative); Glucose Urine UA Norm (Normal); Ketones Urine Negative (Negative); Leukocyte Esterase Urine Negative (Negative); Nitrate Urine Negative (Negative); Protein Urine Neg (Negative); Specific Gravity, Urine 1.015 (1.005-1.030); Urine Appearance Clear (CLEAR); Urine Color Yellow (Yellow); Urobilinogen Urine Norm (Negative); pH Urine 5 (5-7)
== END 2022-08-04 13:46 | disposition home or self-care (01) ==
PROVIDERS: Physician Assistant; Emergency Provider Family Medicine; PCP Family Medicine
DX: R10.9 Unspecified abdominal pain (principal)
CPT/HCPCS: 74176; 80053; 81003; 83690; 85025; 96360; 99285; J7030

== ENCOUNTER → 2022-08-11 10:28 | Outpatient (BNVA) | payer MEDICARE, MEDICAID, SELFPAY | PROVIDERS: PCP Family Medicine; Visit Provider Anesthesiology Pain Medicine | DX: M48.062 Spinal stenosis, lumbar region with neurogenic claudication (principal); M51.16 Intervertebral disc disorders with radiculopathy, lumbar region; M47.816 Spondylosis without myelopathy or radiculopathy, lumbar region; M79.604 Pain in right leg; M79.605 Pain in left leg | CPT/HCPCS: 99214 ==

== ENCOUNTER → 2022-09-09 12:46 | Outpatient (BNVA) | payer MEDICARE, MEDICAID, SELFPAY | PROVIDERS: PCP Family Medicine; Visit Provider Anesthesiology Pain Medicine | DX: M54.16 Radiculopathy, lumbar region (principal); M48.062 Spinal stenosis, lumbar region with neurogenic claudication | CPT/HCPCS: 64483; 64484; J1100; J3490 ==

== ENCOUNTER → 2022-09-23 10:04 | Outpatient (BNVA) | payer MEDICARE, MEDICAID, SELFPAY | PROVIDERS: PCP Family Medicine; Visit Provider Anesthesiology Pain Medicine | DX: M48.062 Spinal stenosis, lumbar region with neurogenic claudication (principal); M51.16 Intervertebral disc disorders with radiculopathy, lumbar region; M47.816 Spondylosis without myelopathy or radiculopathy, lumbar region | CPT/HCPCS: 99214 ==

== ENCOUNTER → 2022-09-24 08:53 | Outpatient (BNVA) | payer MEDICARE, MEDICAID, SELFPAY | PROVIDERS: PCP Family Medicine; Visit Provider Surgery | DX: K58.0 Irritable bowel syndrome with diarrhea (principal) | CPT/HCPCS: 99213 ==

== ENCOUNTER → 2022-10-14 13:52 | Outpatient (BNVA) | payer MEDICARE, MEDICAID, SELFPAY | PROVIDERS: PCP Family Medicine; Visit Provider Anesthesiology Pain Medicine | DX: M54.16 Radiculopathy, lumbar region (principal); M48.062 Spinal stenosis, lumbar region with neurogenic claudication | CPT/HCPCS: 64493; 64494; 64495; J3490 ==

== ENCOUNTER → 2022-10-28 12:41 | Outpatient (BNVA) | payer MEDICARE, MEDICAID, SELFPAY | PROVIDERS: PCP Family Medicine; Visit Provider Anesthesiology Pain Medicine | DX: M54.16 Radiculopathy, lumbar region (principal); M48.062 Spinal stenosis, lumbar region with neurogenic claudication | CPT/HCPCS: 64493; 64494; 64495; J3490 ==

== ENCOUNTER → 2022-11-18 09:09 | Outpatient (BNVA) | payer MEDICARE, MEDICAID, SELFPAY | PROVIDERS: PCP Family Medicine; Visit Provider Anesthesiology Pain Medicine | DX: M48.062 Spinal stenosis, lumbar region with neurogenic claudication (principal); M51.16 Intervertebral disc disorders with radiculopathy, lumbar region; M47.816 Spondylosis without myelopathy or radiculopathy, lumbar region | CPT/HCPCS: 99214 ==

== ENCOUNTER → 2022-12-02 08:20 | Outpatient (BNVA) | payer MEDICARE, MEDICAID, SELFPAY | PROVIDERS: PCP Family Medicine; Visit Provider Orthopaedic Surgery | DX: M48.062 Spinal stenosis, lumbar region with neurogenic claudication (principal) | CPT/HCPCS: 72110; 99213 ==

== ENCOUNTER → 2022-12-14 10:29 | Outpatient (BNVA) | payer MEDICARE, MEDICAID, SELFPAY | PROVIDERS: PCP Family Medicine; Visit Provider Anesthesiology Pain Medicine | DX: M48.062 Spinal stenosis, lumbar region with neurogenic claudication (principal); M51.16 Intervertebral disc disorders with radiculopathy, lumbar region; M47.816 Spondylosis without myelopathy or radiculopathy, lumbar region | CPT/HCPCS: 99214 ==

== ENCOUNTER → 2023-01-10 12:46 | Outpatient (BNVA) | payer MEDICARE, MEDICAID, SELFPAY | PROVIDERS: PCP Family Medicine; Visit Provider Anesthesiology Pain Medicine | DX: M47.816 Spondylosis without myelopathy or radiculopathy, lumbar region (principal); M48.062 Spinal stenosis, lumbar region with neurogenic claudication | CPT/HCPCS: 64635; 64636; J1030 ==

== ENCOUNTER → 2023-01-24 14:35 | Outpatient (BNVA) | payer MEDICARE, MEDICAID, SELFPAY | PROVIDERS: PCP Family Medicine; Visit Provider Anesthesiology Pain Medicine | DX: M47.816 Spondylosis without myelopathy or radiculopathy, lumbar region (principal); M48.062 Spinal stenosis, lumbar region with neurogenic claudication | CPT/HCPCS: 64635; 64636; J1030 ==

== ENCOUNTER → 2023-03-02 08:53 | Outpatient (BNVA) | payer MEDICARE, MEDICAID, SELFPAY | PROVIDERS: PCP Family Medicine; Visit Provider Anesthesiology Pain Medicine | DX: M48.062 Spinal stenosis, lumbar region with neurogenic claudication (principal); M51.16 Intervertebral disc disorders with radiculopathy, lumbar region; M47.816 Spondylosis without myelopathy or radiculopathy, lumbar region | CPT/HCPCS: 99213 ==

== ENCOUNTER → 2023-03-08 12:56 | Outpatient (BNVA) | payer MEDICARE, MEDICAID, SELFPAY | PROVIDERS: PCP Family Medicine; Visit Provider Orthopaedic Surgery | DX: M48.062 Spinal stenosis, lumbar region with neurogenic claudication (principal) | CPT/HCPCS: 99214 ==

== ENCOUNTER → 2023-04-20 09:11 | Outpatient (BNVA) | payer MEDICARE, MEDICAID, SELFPAY | PROVIDERS: PCP Family Medicine; Visit Provider Anesthesiology Pain Medicine | DX: M48.062 Spinal stenosis, lumbar region with neurogenic claudication (principal); M51.16 Intervertebral disc disorders with radiculopathy, lumbar region; M47.816 Spondylosis without myelopathy or radiculopathy, lumbar region | CPT/HCPCS: 99214 ==

== ENCOUNTER → 2023-05-18 13:07 | Outpatient (BNVA) | payer MEDICARE, MEDICAID, SELFPAY | PROVIDERS: PCP Family Medicine; Visit Provider Anesthesiology Pain Medicine | DX: M54.16 Radiculopathy, lumbar region (principal); M48.062 Spinal stenosis, lumbar region with neurogenic claudication | CPT/HCPCS: 62323; J1040 ==

== ENCOUNTER → 2023-06-07 09:41 | Outpatient (BNVA) | payer MEDICARE, MEDICAID, SELFPAY | PROVIDERS: PCP Family Medicine; Visit Provider Anesthesiology Pain Medicine | DX: M48.062 Spinal stenosis, lumbar region with neurogenic claudication (principal); M51.16 Intervertebral disc disorders with radiculopathy, lumbar region; M47.816 Spondylosis without myelopathy or radiculopathy, lumbar region | CPT/HCPCS: 99214 ==

== ENCOUNTER → 2023-09-07 10:16 | Outpatient (BNVA) | payer MEDICARE, MEDICAID, SELFPAY | PROVIDERS: PCP Family Medicine; Visit Provider Anesthesiology Pain Medicine | DX: M51.16 Intervertebral disc disorders with radiculopathy, lumbar region (principal); M48.062 Spinal stenosis, lumbar region with neurogenic claudication; M47.816 Spondylosis without myelopathy or radiculopathy, lumbar region | CPT/HCPCS: 99214 ==

== ENCOUNTER 2023-09-13 11:31 | Emergency (ER) | payer MEDICARE, MEDICAID, SELFPAY ==
[2023-09-13 11:34] VITALS: PULSE 103; RESP 17; TEMP 36.7
--- NOTE | 2023-09-13 11:39 | CT_ITS ---
WS: [id number] CT CERVICAL TRAUMA TECHNIQUE: Noncontrast CT of the cervical spine with coronal and sagittal reformatted images. CLINICAL INFORMATION: fall COMPARISON: None. DLP: 1668.[address] scans at [facility] use at least one of these dose optimization techniques: automated e xposure control; mA and/or kV adjustment per patient size (includes targeted exams where dose is matc hed to clinical indication); or iterative reconstruction. FINDINGS: Straightening of the normal cervical lordosis. Normal craniocervical junction. Normal C1-C2 articulat ion. Dens is normal in appearance. Normal occipital condyles. No high-grade spinal canal narrowing. N ormal C1 ring. No evidence of acute fracture or dislocation. Normal prevertebral soft tissues. Mastoids air cells are well aerated. IMPRESSION: No evidence of acute fracture or dislocation.
--- NOTE | 2023-09-13 11:39 | CT_ITS ---
WS: [id number] CT HEAD TECHNIQUE: Noncontrast CT of the head obtained from the skullbase to the vertex. CLINICAL INFORMATION: fall COMPARISON: None. DLP: 1668.[address] scans at [facility] use at least one of these dose optimization techniques: automated e xposure control; mA and/or kV adjustment per patient size (includes targeted exams where dose is matc hed to clinical indication); or iterative reconstruction. FINDINGS: Tiny punctate focus of increased T2 lesion in the LEFT frontal lobe near the vertex measuring 3.5 mm. This is indeterminate but may represent venous angioma or vascular anomaly. Acute hemorrhage felt to be less likely. Recommend short interval follow-up to confirm stability. Otherwise no evidence of intracranial hemorrhage or mass effect. Normal mays-white differentiation. N o hydrocephalus. No extra-axial fluid collections. Paranasal sinuses and mastoid air cells are well a erated. No other suspicious findings. IMPRESSION: 1. Tiny punctate focus of increased attenuation in the LEFT frontal lobe near the vertex. This is in determinate and may represent a tiny venous angioma or vascular anomaly. Tiny punctate focus of hemor rhage is less likely. Recommend short interval 24-36 hour follow-up to confirm stability. 2. No other suspicious intracranial findings. Notified Mark Sierra MD at 09/13/2023 12:41 PM.
[2023-09-13 11:40] VITALS: BP 148/106; O2SAT 96; BMI 28.5
--- NOTE | 2023-09-13 11:42 | ED_ITS ---
HPI - Fall General: Chief Complaint: Fall Stated Complaint: FALL Time Seen by Provider: 09/13/23 11:34 Source: patient and EMS Mode of arrival: EMS Limitations: no limitations History of Present Illness: 33-year-old male who states that he slip ped twice fell states he did hit his head he does not remember the second fall he also has neck pain. Rates his pain a 5 out of 10 he denies any other injuries denies any lower extremity pain. Associated symptoms-after fall: Reports headache(s) and neck pain; Denies abdominal pain or chest pain Review of Systems Const: Denies: fever(s), chills, body aches or change in appetite ENMT: Denies: throat pain or dental pain Card: Denies: chest pain Resp: Denies: dyspnea GI: Denies: abdominal pain, nausea, vomiting or diarrhea Musc: Reports: neck pain; Denies: back pain Skin/Breast: Denies: rash Neuro: Reports: headache(s) PFS ED PFSH: Medical History Lactose intolerance Gastroenteritis Low back pain H/O Helicobacter infection Allergic rhinitis GERD (gastroesophageal reflux disease) H/O methicillin resistant Staphylococcus aureus Surgical History H/O colonoscopy 07/29/16 Recheck in 10 years H/O esophagogastroduodenoscopy 07/29/16 H/O circumcision Family History Other Adopted Social History Smoking and tobacco/nicotine status: never used tobacco/nicotine Second hand smoke exposure: No Alcohol intake: never Substance/Drug Use: never Adopted: Yes Lives independently: Yes Marital status: Single Current occupational status: disabled Physical Exam Const: COMMON NORMALS: no acute distress, patient oriented x3 and healthy appearing HENMT: COMMON NORMALS: normocephalic and atraumatic HEAD & SCALP: normocephalic and atraumatic Eye: COMMON NORMALS: Equal, round and reactive pupils present and EOMs intact bilaterally PUPIL: Yes Equal, round and reactive pupils present Neck/C-Spine: OTHER: in c collar Chest: COMMONS NORMALS: normal inspection of the chest and normal palpation of entire chest wall Resp: COMMON NORMALS: normal respiratory effort, No retractions, No use of accessory muscles and clear to auscultation bilaterally AUSCULTATION: clear to auscultation bilaterally Cardio: COMMON NORMALS: regular rate, regular rhythm and No murmurs present (Cardio) RATE: regular rate RHYTHM: regular rhythm GI: COMMON NORMALS: Normal to inspection, nondistended, normoactive bowel sounds present, Soft to palpation, non-tender and no masses PALPATION: Yes Soft to palpation Extremity: COMMON NORMALS: normal to inspection and full ROM Neuro: COMMON NORMALS: patient oriented x3, moves all extremities and no focal motor deficits Psych: COMMON NORMALS: mental status grossly normal, Normal thought process present and cooperative THOUGHT PROCESS: Normal thought process present Skin: COMMON NORMALS: no rashes or lesions noted and no wounds GENERAL SKIN EXAM: no rashes or lesions noted Course Vital Signs: Vital signs: Vital Signs Temperature 98.1 F 09/13/23 11:34 Pulse Rate 103 H 09/13/23 11:34 Respiratory Rate 17 09/13/23 11:34 Blood Pressure 148/106 09/13/23 11:40 Pulse Oximetry 96 09/13/23 11:40 MDM - Fall Medical Decision Making Patient presents here after a fall I did inform him of CT findings and informed him he could have possible hemorrhage I did offer him transfer to be observed for neurosurgeon did inform him he needs repeat imaging in 24 to 48 hours he states that his father's is tonight and that he is not able to be transferred he states that he has to go to the I informed if his symptoms worsen he is to return he understands agrees to plan. Medical Records I reviewed the patient's medical records. All radiology interpretation(s) finalized by discharge Discharge Plan Discharge Patient Disposition: Home Clinical Impression: Closed head injury Condition: Stable Prescriptions: No Action hydroxyzine HCl 25 mg tablet 25 mg PO BID PRN (Reason: itching) levocetirizine [Xyzal] 5 mg tablet 5 mg PO QAM pantoprazole 40 mg tablet,delayed release (DR/EC) 40 mg PO QAM Qty: 90 3RF famotidine [Pepcid] 40 mg tablet 40 mg PO BID 5 Days Qty: 10 0RF fluticasone propionate 50 mcg/actuation spray,suspension 2 spray intranasal DAILY Qty: 16 0RF Rx Instructions: administer into each nostril oxymetazoline [Nasal [place] 12Hr(oxymetazoline] 0.05 % spray,non-aerosol 2 spray intranasal BID PRN (Reason: nasal congestion) 3 Days Qty: 15 0RF tizanidine 4 mg tablet 4 mg PO BID PRN (Reason: muscle spasticity) Qty: 60 0RF gabapentin 300 mg capsule 300 mg PO TID Qty: 90 0RF Apple Cider Vinegar Gummies 2 tab PO QAM albuterol sulfate 2.5 mg /3 mL (0.083 %) solution for nebulization 2.5 mg inhalation TID PRN (Reason: Shortness Of Breath) ondansetron HCl 8 mg tablet 8 mg PO Q8H PRN (Reason: Nausea And Vomiting) lansoprazole 30 mg capsule,delayed release(DR/EC) 30 mg PO BID Rx Instructions: for 14 days hyoscyamine sulfate 0.125 mg tablet, sublingual 0.125 mg PO Q4H PRN (Reason: Cramps) albuterol sulfate 90 mcg/actuation HFA aerosol inhaler 2 puff INHALATION QID PRN (Reason: Shortness Of Breath) Adult Multivitamin Gummies 200 mcg Tablet,Chewable 2 tab PO QAM melatonin 5 mg Tablet,Chewable 5 mg PO BEDTIME PRN (Reason: Sleep) Singulair 10 mg tablet 10 mg PO QAM naproxen 500 mg tablet 500 mg PO BID PRN (Reason: Pain) ondansetron HCl 4 mg tablet 4 mg PO Q6H PRN (Reason: nausea and vomiting) Qty: 20 0RF dicyclomine 20 mg tablet 20 mg PO QID PRN (Reason: abd cramping) Qty: 20 0RF Discharge Orders: Discharge ED (Routine); Ordered 09/13/23 Ordered By: Mark Sierra Referrals: Surinder Gonzales MD [Primary Care Provider] - 1-3 days Discharge Diet: Advance as tolerated Discharge Activity: Resume usual activity Patient Instructions: Head Injury (ED) Coding Level of Care Code ED Ball Fringe Machine Operator for Philipp Negron
[2023-09-13] MEDS: acetaminophen 325 mg Tablet 650 MG PO (13:18)
[2023-09-13 13:26] VITALS: BP 134/91; PULSE 104; O2SAT 99
== END 2023-09-13 13:28 | disposition home or self-care (01) ==
PROVIDERS: Emergency Provider Emergency Medicine; PCP Family Medicine
DX: S09.8XXA Other specified injuries of head, initial encounter (principal); W00.0XXA Fall on same level due to ice and snow, initial encounter
CPT/HCPCS: 70450; 72125; 99284

== ENCOUNTER 2023-09-15 10:58 | Emergency (ER) | payer MEDICARE, MEDICAID, SELFPAY ==
--- NOTE | 2023-09-15 11:01 | CTR_ITS ---
PROCEDURE INFORMATION: Exam: CT Head Without Contrast Exam date and time: 09/15/2023 11:47 AM Age: 33 years old Clinical indication: Pain; Headache; Additional info: Fall TECHNIQUE: Imaging protocol: Computed tomography of the head without contrast. Radiation optimization: All CT scans at this facility use at least one of these dose optimization techniques: automated exposure control; mA and/or kV adjustment per patient size (includes targeted exams where dose is matched to clinical indication); or iterative reconstruction. COMPARISON: CT head wo con* [id number] 09/13/2023 12:00 PM RADIATION DOSE METRICS: Total DLP (mGy-cm): 1162.6 FINDINGS: Brain: No new intracranial abnormality is identified compared to 09/13/2023. Again noted is a punctate focus of increased attenuation in the left frontal lobe near the vertex, potentially representing chronic calcification. Punctate focus of hemorrhage considered less likely but not excluded with certainty at this short interval. Unfortunately, there are no older studies for comparison. Cerebral ventricles: Size within normal range for age. No midline shift. Paranasal sinuses: Visualized portions of paranasal sinuses are well aerated. Mastoid air cells: Visualized portions of mastoid sinuses are not opacified. Bones/joints: No obvious fracture or aggressive destructive lesion involving the cranium. Soft tissues: Other than as stated above, no obvious acute abnormality. CT/CT head wo con* [id number] IMPRESSION: No no significant interval change compared to exam performed approximately 48 hours previously.
[2023-09-15 11:06] VITALS: BP 133/88; PULSE 81; RESP 14; TEMP 36.7; O2SAT 95
--- NOTE | 2023-09-15 12:03 | W.ED.HEATRA ---
HPI - Head Injury General: Chief complaint: Head Injury Stated complaint: sent form dr mar fall Time Seen by Provider: 09/15/23 11:00 Source: patient Mode of arrival: ambulatory Limitations: no limitations History of Present Illness: 33-year-old male who seen here 2 days ago after the fall he had an area CT head and the neurologist thought is likely a chronic but could been an acute bleed been recommended that he had a repeat scan in 24 to 48 hours had seen him at that time he was unable to stay in the hospital due to his father having a at night he went to his PCP to get the follow-up CT scan his PCP was unable to get it ordered and sent him here for CT scan he states he is felt much improved he denies any headaches he had some muscle soreness from his fall denies any vision changes. Associated symptoms: Deny nausea, neck pain or vomiting Review of Systems Const: Denies: fever(s), chills, body aches or change in appetite Eyes: Denies: blurry vision or eye discomfort ENMT: Denies: throat pain or dental pain Card: Denies: chest pain Resp: Denies: dyspnea GI: Denies: abdominal pain, nausea, vomiting or diarrhea : Denies: dysuria Musc: Denies: neck pain or back pain Skin/Breast: Denies: rash Neuro: Denies: headache(s) PFS ED PFSH: Medical History Lactose intolerance Gastroenteritis Low back pain H/O Helicobacter infection Allergic rhinitis GERD (gastroesophageal reflux disease) H/O methicillin resistant Staphylococcus aureus Surgical History H/O colonoscopy 07/29/16 Recheck in 10 years H/O esophagogastroduodenoscopy 07/29/16 H/O circumcision Family History Other Adopted Social History Smoking and tobacco/nicotine status: never used tobacco/nicotine Second hand smoke exposure: No Alcohol intake: never Substance/Drug Use: never Adopted: Yes Lives independently: Yes Marital status: Single Current occupational status: disabled Physical Exam Const: COMMON NORMALS: no acute distress, patient oriented x3 and healthy appearing HENMT: COMMON NORMALS: normocephalic and atraumatic HEAD & SCALP: normocephalic and atraumatic Eye: COMMON NORMALS: Equal, round and reactive pupils present and EOMs intact bilaterally PUPIL: Yes Equal, round and reactive pupils present Neck/C-Spine: COMMON NORMALS: full ROM and supple Chest: COMMONS NORMALS: normal inspection of the chest Resp: COMMON NORMALS: normal respiratory effort Cardio: COMMON NORMALS: regular rate, regular rhythm and No murmurs present (Cardio) RATE: regular rate RHYTHM: regular rhythm GI: COMMON NORMALS: Normal to inspection, nondistended, normoactive bowel sounds present, Soft to palpation, non-tender and no masses PALPATION: Yes Soft to palpation Extremity: COMMON NORMALS: normal to inspection and full ROM Neuro: COMMON NORMALS: patient oriented x3, moves all extremities and no focal motor deficits Psych: COMMON NORMALS: mental status grossly normal, Normal thought process present and cooperative THOUGHT PROCESS: Normal thought process present Skin: COMMON NORMALS: no rashes or lesions noted and no wounds GENERAL SKIN EXAM: no rashes or lesions noted Course Vital Signs: Vital signs: Vital Signs Temperature 98.0 F 09/15/23 11:06 Pulse Rate 81 09/15/23 11:06 Respiratory Rate 14 09/15/23 11:06 Blood Pressure 133/88 09/15/23 11:06 Pulse Oximetry 95 09/15/23 11:06 Oxygen Delivery Me thod Room Air 09/15/23 11:06 MDM - Head Injury Medcial Decision Making Patient presents here for repeat head CT CT showed no change from previous likely chronic findings he is stable for discharge she is follow-up with PCP and return if worsening. Lab Data Radiology Impressions Head CT 09/15/23 11:01 IMPRESSION: No no significant interval change compared to exam performed approximately 48 hours previously. No radiology studies performed this visit Discharge Plan Discharge Patient Disposition: Home Clinical Impression: Closed head injury Condition: Stable Prescriptions: No Action hydroxyzine HCl 25 mg tablet 25 mg PO BID PRN (Reason: itching) levocetirizine [Xyzal] 5 mg tablet 5 mg PO QAM pantoprazole 40 mg tablet,delayed release (DR/EC) 40 mg PO QAM Qty: 90 3RF famotidine [Pepcid] 40 mg tablet 40 mg PO BID 5 Days Qty: 10 0RF fluticasone propionate 50 mcg/actuation spray,suspension 2 spray intranasal DAILY Qty: 16 0RF Rx Instructions: administer into each nostril oxymetazoline [Nasal [place] 12Hr(oxymetazoline] 0.05 % spray,non-aerosol 2 spray intranasal BID PRN (Reason: nasal congestion) 3 Days Qty: 15 0RF tizanidine 4 mg tablet 4 mg PO BID PRN (Reason: muscle spasticity) Qty: 60 0RF gabapentin 300 mg capsule 300 mg PO TID Qty: 90 0RF Apple Cider Vinegar Gummies 2 tab PO QAM albuterol sulfate 2.5 mg /3 mL (0.083 %) solution for nebulization 2.5 mg inhalation TID PRN (Reason: Shortness Of Breath) ondansetron HCl 8 mg tablet 8 mg PO Q8H PRN (Reason: Nausea And Vomiting) lansoprazole 30 mg capsule,delayed release(DR/EC) 30 mg PO BID Rx Instructions: for 14 days hyoscyamine sulfate 0.125 mg tablet, sublingual 0.125 mg PO Q4H PRN (Reason: Cramps) albuterol sulfate 90 mcg/actuation HFA aerosol inhaler 2 puff INHALATION QID PRN (Reason: Shortness Of Breath) Adult Multivitamin Gummies 200 mcg Tablet,Chewable 2 tab PO QAM melatonin 5 mg Tablet,Chewable 5 mg PO BEDTIME PRN (Reason: Sleep) Singulair 10 mg tablet 10 mg PO QAM naproxen 500 mg tablet 500 mg PO BID PRN (Reason: Pain) ondansetron HCl 4 mg tablet 4 mg PO Q6H PRN (Reason: nausea and vomiting) Qty: 20 0RF dicyclomine 20 mg tablet 20 mg PO QID PRN (Reason: abd cramping) Qty: 20 0RF Discharge Orders: Discharge ED (Routine); Ordered 09/15/23 Ordered By: Mark Sierra Referrals: Surinder Gonzales MD [Primary Care Provider] - Discharge Diet: Advance as tolerated Discharge Activity: Resume usual activity Patient Instructions: Head Injury (ED) Coding Level of Care Code ED Office Rental Clerk for Philipp Negron
[2023-09-15 12:33] VITALS: BP 127/88; PULSE 95; O2SAT 98
== END 2023-09-15 12:29 | disposition home or self-care (01) ==
PROVIDERS: Emergency Provider Emergency Medicine; PCP Family Medicine
DX: S09.8XXA Other specified injuries of head, initial encounter (principal); W19.XXXA Unspecified fall, initial encounter
CPT/HCPCS: 70450; 99284

== ENCOUNTER → 2023-10-25 11:24 | Outpatient (BNVA) | payer MEDICARE, MEDICAID, SELFPAY | PROVIDERS: PCP Family Medicine; Visit Provider Anesthesiology Pain Medicine | DX: M51.16 Intervertebral disc disorders with radiculopathy, lumbar region (principal); M48.062 Spinal stenosis, lumbar region with neurogenic claudication; M47.816 Spondylosis without myelopathy or radiculopathy, lumbar region | CPT/HCPCS: 99214 ==

== ENCOUNTER 2023-12-02 07:32 | Outpatient (CLI) | payer MEDICARE, MEDICAID, SELFPAY ==
--- NOTE | 2023-12-02 08:00 | MR_ITS ---
WS: [id number] MRI LUMBAR SPINE NONCONTRAST TECHNIQUE: Sagittal T1, T2 and STIR imaging. Axial T1 and T2 imaging. CLINICAL INFORMATION: M51.16 - Intervertebral disc disorders with radiculopathy... COMPARISON: MRI 03/18/2022 FINDINGS: Chronic bilateral pars defects L5-S1. No significant anterolisthesis. Disc bulging worse at L5-S1. No acute compression fractures. No high-grade central canal stenosis. L1-L2: Mild facet arthropathy. Spinal canal and foramen are patent. L2-L3: No significant disc bulging. Spinal canal and foramen are patent. Mild facet arthropathy. L3-L4: No significant disc bulging. Mild facet arthropathy. Spinal canal and foramen are patent. L4-L5: No significant disc bulging. Mild osteophytic ridging. Spinal canal and foramen are patent. Mi ld facet arthropathy. L5-S1: Tiny LEFT paracentral protrusion with a small annular fissure. Slight contact of the LEFT S1 n erve root. This is unchanged from previous. Mild RIGHT L5-S1 foraminal narrowing. Mild facet arthropa thy. Visualized pelvic bony structures: Normal. Paravertebral soft tissues: Normal. IMPRESSION: 1. Overall no significant changes compared to 03/18/2022. 2. Shallow LEFT paracentral protrusion with slight contact of the LEFT S1 nerve root. Small annular fissure at this level. This is similar to previous. 3. Mild to moderate facet arthropathy L3-L5. 4. Mild RIGHT L5-S1 foraminal narrowing unchanged. 5. Chronic bilateral pars defects L5-S1. No significant anterolisthesis.
== END 2023-12-02 07:33 | disposition home or self-care (01) ==
LOC: RAD 07:32
PROVIDERS: PCP Family Medicine; Visit Provider Anesthesiology Pain Medicine
DX: M51.16 Intervertebral disc disorders with radiculopathy, lumbar region (principal); M51.26 Other intervertebral disc displacement, lumbar region; M47.816 Spondylosis without myelopathy or radiculopathy, lumbar region; M48.07 Spinal stenosis, lumbosacral region
CPT/HCPCS: 72148

== ENCOUNTER → 2023-12-07 08:44 | Outpatient (BNVA) | payer MEDICARE, MEDICAID, SELFPAY | PROVIDERS: PCP Family Medicine; Visit Provider Anesthesiology Pain Medicine | DX: M48.062 Spinal stenosis, lumbar region with neurogenic claudication (principal); M51.16 Intervertebral disc disorders with radiculopathy, lumbar region; M47.816 Spondylosis without myelopathy or radiculopathy, lumbar region; M47.817 Spondylosis without myelopathy or radiculopathy, lumbosacral region | CPT/HCPCS: 99214 ==

== ENCOUNTER 2024-01-09 08:17 | Outpatient (RCR) | payer MEDICARE, MEDICAID, SELFPAY | END 2024-01-20 23:59 | disposition home or self-care (01) | LOC: SPT 08:17 | PROVIDERS: Visit Provider Surgery | DX: M43.06 Spondylolysis, lumbar region (principal); M51.37 Other intervertebral disc degeneration, lumbosacral region; M54.16 Radiculopathy, lumbar region | CPT/HCPCS: 97161 ==

== ENCOUNTER 2024-05-02 20:00 | Outpatient (CLI) | payer MEDICARE, MEDICAID, SELFPAY | END 2024-05-02 20:01 | disposition home or self-care (01) | LOC: SLEEP 05-03 00:09 | PROVIDERS: Visit Provider Family Medicine | DX: G47.33 Obstructive sleep apnea (adult) (pediatric) (principal) | CPT/HCPCS: 95810 ==

== ENCOUNTER → 2024-08-29 07:52 | Outpatient (BNVA) | payer MEDICARE, MEDICAID, SELFPAY | PROVIDERS: PCP Family Medicine; Visit Provider Internal Medicine | DX: R68.89 Other general symptoms and signs (principal); R63.5 Abnormal weight gain; E16.2 Hypoglycemia, unspecified | CPT/HCPCS: 99204 ==

== ENCOUNTER → 2024-09-13 11:56 | Outpatient (BNVA) | payer MEDICARE, SELFPAY | PROVIDERS: PCP Family Medicine; Visit Provider Internal Medicine | DX: R68.89 Other general symptoms and signs (principal); R63.5 Abnormal weight gain; E16.2 Hypoglycemia, unspecified; R35.89 Other polyuria | CPT/HCPCS: 99214 ==

== ENCOUNTER → 2024-09-24 09:48 | Outpatient (BNVA) | payer MEDICARE, SELFPAY | PROVIDERS: PCP Family Medicine; Visit Provider Anesthesiology Pain Medicine | DX: M48.062 Spinal stenosis, lumbar region with neurogenic claudication (principal); M51.16 Intervertebral disc disorders with radiculopathy, lumbar region; M47.816 Spondylosis without myelopathy or radiculopathy, lumbar region | CPT/HCPCS: 99214 ==

== ENCOUNTER → 2024-10-24 13:04 | Outpatient (BNVA) | payer MEDICARE, SELFPAY | PROVIDERS: PCP Family Medicine; Visit Provider Anesthesiology Pain Medicine | DX: M47.816 Spondylosis without myelopathy or radiculopathy, lumbar region (principal); M48.062 Spinal stenosis, lumbar region with neurogenic claudication | CPT/HCPCS: 64493; 64494; 64495; J3490 ==

== ENCOUNTER 2024-11-07 08:19 | Outpatient (CLI) | payer MEDICARE, SELFPAY ==
--- NOTE | 2024-11-07 08:22 | CT_ITS ---
WS: [id number] CT ABDOMEN AND PELVIS WITH CONTRAST HISTORY: LLQ PAIN TECHNIQUE: Imaging performed of the abdomen and pelvis with IV contrast. Single phase imaging of the abdomen. Coronal and sagittal reformats are submitted. All CT scans at [facility] use at least one of these dose optimization techniques: automated exposure control; mA and/or kV adjustment per patient size (includes targeted exams where dose is matched to clinical indication); or iterative reconstruction. IV CONTRAST: Omnipaque 350; 100 mL IV. Oral contrast: Yes. DLP: 885.33 mGy.cm COMPARISON: 08/04/2022 Lower thorax: Lung bases are clear. Heart is normal size. Small hiatal hernia. Liver/biliary system: Normal size liver with mild diffuse hepatic steatosis. No mass. No hepatobiliary dilatation. Normal portal vein. Gallbladder: Gallbladder is slightly contracted with no adjacent inflammation. May be due to a nonfasting state. Pancreas: Normal size pancreas and pancreatic duct. No adjacent inflammation. Spleen: Normal size spleen. No mass or infarct. Adrenal glands: Normal. Right kidney: Normal. Left kidney: Normal. Aorta: Normal. Lymphadenopathy: None. Free fluid: None. GI tract: Unremarkable. Abdominal wall: Fat containing umbilical hernia. Pelvis: No free fluid or adenopathy within the pelvis. Bones: Bilateral femoral head osteonecrosis. Bilateral pars defects at L5. CT/CT abdomen pelvis w con* [id number] IMPRESSION: 1. No acute abdominal or pelvic abnormalities identified. 2. No GI tract obstruction or colitis. 3. No ascites or adenopathy. 4. Mild hepatic steatosis. 5. Contracted gallbladder is probably due to nonfasting state. 6. Bilateral femoral head osteonecrosis.
[2024-11-07] MEDS: iohexol 350 mg/mL 500 mL Btl (per mL) PO (09:50)
[2024-11-07] MEDS: iohexol 350 mg/mL 500 mL Btl (per mL) IV (09:53)
== END 2024-11-07 08:20 | disposition home or self-care (01) ==
LOC: RAD 08:21
PROVIDERS: PCP Family Medicine; Visit Provider Family Medicine
DX: R10.32 Left lower quadrant pain (principal); K76.0 Fatty (change of) liver, not elsewhere classified; M87.88 Other osteonecrosis, other site; K44.9 Diaphragmatic hernia without obstruction or gangrene; K42.9 Umbilical hernia without obstruction or gangrene; M43.06 Spondylolysis, lumbar region
CPT/HCPCS: 74177

== ENCOUNTER → 2024-11-20 10:26 | Outpatient (BNVA) | payer MEDICARE, SELFPAY | PROVIDERS: PCP Family Medicine; Visit Provider Nurse Practitioner Family | DX: L20.89 Other atopic dermatitis (principal); L85.8 Other specified epidermal thickening; L29.89 Other pruritus; L81.0 Postinflammatory hyperpigmentation; L59.0 Erythema ab igne [dermatitis ab igne]; D22.5 Melanocytic nevi of trunk | CPT/HCPCS: 99204 ==

== ENCOUNTER → 2024-11-26 08:39 | Outpatient (BNVA) | payer MEDICARE, SELFPAY | PROVIDERS: PCP Family Medicine; Visit Provider Student in an Organized Health Care Education/Training Program | DX: K80.50 Calculus of bile duct without cholangitis or cholecystitis without obstruction (principal) | CPT/HCPCS: 99214 ==

== ENCOUNTER 2024-11-27 12:13 | Outpatient (CLI) | payer MEDICARE, SELFPAY ==
[2024-11-27 13:44] LABS: Estmated Average Glucose 111; Hemoglobin A1C 5.5 % (4.0-6.0)
[2024-11-27 13:52] LABS: Alanine Aminotransferase 63 U/L (0-41); Albumin Level 4.5 g/dL (3.5-5.2); Alkaline Phosphatase 85 U/L (40-130); Aspartate Amino Transferase 34 U/L (0-40); Blood Urea Nitrogen 14 mg/dL (6-20); Calcium 9.3 mg/dL (8.5-10.5); Carbon Dioxide 26 mmol/L (22-29); Chloride 105 mmol/L (98-107); Glomerular Filtration Rate 95.5 mL/min (90-130); Glucose 102 mg/dL (65-115); Osmolality Calculated 291 mOsm/kg (285-295); Sodium 140 mmol/L (136-145); Total Bilirubin 0.3 mg/dL (0.15-1.2); Total Protein 7.5 g/dL (6.6-8.7)
[2024-11-27 13:55] LABS: Anion Gap 12.8 (5-19); Potassium 3.8 mmol/L (3.5-5.1)
== END 2024-11-27 12:14 | disposition home or self-care (01) ==
PROVIDERS: PCP Family Medicine; Visit Provider Internal Medicine
DX: R68.89 Other general symptoms and signs (principal); R63.5 Abnormal weight gain; E16.2 Hypoglycemia, unspecified; R35.89 Other polyuria
CPT/HCPCS: 36415; 80053; 83036; 83935; 87338

== ENCOUNTER 2024-11-28 08:40 | Outpatient (CLI) | payer MEDICARE, SELFPAY ==
[2024-11-28 16:45] LABS: Total Volume Urine 900 ml; Total Volume, Urine 900 mL
[2024-11-28 17:07] LABS: Sodium, Urine Result 186 mmol/L; Urine Creatinine 232 mg/dL (39-259)
== END 2024-11-28 08:41 | disposition home or self-care (01) ==
PROVIDERS: PCP Family Medicine; Visit Provider Internal Medicine
DX: R68.89 Other general symptoms and signs (principal); R63.5 Abnormal weight gain; E16.2 Hypoglycemia, unspecified; R35.89 Other polyuria
CPT/HCPCS: 82570; 84300

== ENCOUNTER → 2024-12-03 10:36 | Outpatient (BNVA) | payer MEDICARE, SELFPAY | PROVIDERS: PCP Family Medicine; Visit Provider Anesthesiology Pain Medicine | DX: M48.062 Spinal stenosis, lumbar region with neurogenic claudication (principal); M51.16 Intervertebral disc disorders with radiculopathy, lumbar region; M47.816 Spondylosis without myelopathy or radiculopathy, lumbar region | CPT/HCPCS: 99214 ==

== ENCOUNTER → 2024-12-05 10:08 | Outpatient (BNVA) | payer MEDICARE, SELFPAY | PROVIDERS: PCP Family Medicine; Visit Provider Anesthesiology Pain Medicine | DX: M47.816 Spondylosis without myelopathy or radiculopathy, lumbar region (principal); M48.062 Spinal stenosis, lumbar region with neurogenic claudication; R03.0 Elevated blood-pressure reading, without diagnosis of hypertension | CPT/HCPCS: 64493; 64494; 64495; J3490; J9999 ==

== ENCOUNTER 2024-12-12 09:36 | Outpatient (CLI) | payer MEDICARE, SELFPAY ==
--- NOTE | 2024-12-12 09:45 | US_ITS ---
WS: [id number] RIGHT UPPER QUADRANT ULTRASOUND HISTORY: Biliary Colic COMPARISON: 03/01/2022 Liver: 16.7 cm in length. Normal size with diffuse moderate hepatic steatosis. The entire liver is not well visualized due to attenuation. No mass or intrahepatic duct dilatation. Portal Vein: Normal hepatopetal flow with monophasic waveform. Gallbladder: Normally distended gallbladder with no stones or wall thickening. CBD: 0.3 cm Pancreas: Not visualized. Right kidney: 10.0 cm in length. Normal size and echogenicity. No hydronephrosis or mass. Aorta and IVC: Unremarkable abdominal aorta and IVC. No ascites. US/US gall bladder [id number] IMPRESSION: 1. Normal gallbladder. 2. No hepatobiliary duct dilatation. 3. Moderate diffuse hepatic steatosis.
== END 2024-12-12 09:37 | disposition home or self-care (01) ==
LOC: RAD 09:38
PROVIDERS: PCP Family Medicine; Visit Provider Student in an Organized Health Care Education/Training Program
DX: K80.50 Calculus of bile duct without cholangitis or cholecystitis without obstruction (principal); K76.0 Fatty (change of) liver, not elsewhere classified
CPT/HCPCS: 76705

== ENCOUNTER → 2024-12-24 13:22 | Outpatient (BNVA) | payer MEDICARE, SELFPAY | PROVIDERS: PCP Family Medicine; Visit Provider Anesthesiology Pain Medicine | DX: M48.062 Spinal stenosis, lumbar region with neurogenic claudication (principal); M51.16 Intervertebral disc disorders with radiculopathy, lumbar region; M47.26 Other spondylosis with radiculopathy, lumbar region | CPT/HCPCS: 99214 ==

== ENCOUNTER 2024-12-26 08:39 | Outpatient (CLI) | payer MEDICARE, SELFPAY ==
--- NOTE | 2024-12-26 10:00 | NM_ITS ---
WS: [id number] NUCLEAR MEDICINE HIDA SCAN WITH GALLBLADDER EJECTION FRACTION HISTORY: abdominal pain COMPARISON: 05/04/2022 TECHNIQUE: The patient was intravenously injected with 7.7 mCi of TC99m Mebrofenin. Immediate imaging over the right upper quadrant was followed by 5 minute image and additional images for a total of 60 minutes. Normal uptake of radiotracer throughout the liver. Activity identified in the gallbladder at 10 minutes and well distended by 60 minutes. Activity in the proximal small bowel was seen by 30 minutes. Good washout of the radiotracer from the liver by 60 minutes. The patient then drank 8 ounces of Ensure Plus. Ejection fraction at 60 minutes was 76%. Normal GB ejection fraction is 35-75%. Post fatty meal symptoms: None. NM/NM hepatobiliary w phar* [id number] IMPRESSION: 1. Normal HIDA scan. 2. Normal gallbladder ejection fraction.
== END 2024-12-26 08:40 | disposition home or self-care (01) ==
LOC: RAD 08:40
PROVIDERS: PCP Family Medicine; Visit Provider Student in an Organized Health Care Education/Training Program
DX: K80.50 Calculus of bile duct without cholangitis or cholecystitis without obstruction (principal); R10.9 Unspecified abdominal pain
CPT/HCPCS: 78227; A9537

== ENCOUNTER → 2025-01-09 13:29 | Outpatient (BNVA) | payer MEDICARE, SELFPAY | PROVIDERS: PCP Family Medicine; Visit Provider Anesthesiology Pain Medicine | DX: M47.816 Spondylosis without myelopathy or radiculopathy, lumbar region (principal); M48.062 Spinal stenosis, lumbar region with neurogenic claudication | CPT/HCPCS: 64635; 64636; J1010; J9999 ==

== ENCOUNTER 2025-01-18 07:40 | Outpatient (CLI) | payer MEDICARE, SELFPAY ==
--- NOTE | 2025-01-18 07:45 | US_ITS ---
WS: [id number] Gallbladder and right upper quadrant ultrasound, 01/18/2025 Clinical Data: NAUSEA/PERSONAL HX OF INFECTIOUS PARASITIC DZ/IBS Comparison: Gallbladder and right upper quadrant ultrasound, 12/12/2024 Findings: The gallbladder shows no sludge or stone. The wall measures 0.2 cm with no pericholecystic fluid. The common bile duct is 0.2 cm and there are no intrahepatic ductal abnormalities. Liver shows no cysts, masses or dilated intrahepatic ducts. The liver shows uniform echotexture with fatty infiltration. The portal vein measures 1.1 cm and shows hepatopetal flow. The pancreas is obscured by overlying bowel gas but no obvious cyst, pseudocyst, or evidence of pancreatitis is noted. Right kidney measures 10.3 cm and no cyst, masses or hydronephrosis can be seen. The aorta and inferior vena cava show no vascular abnormalities. US/US abdomen limited [id number] Impression: 1. Negative gallbladder. 2. Fatty infiltration of the liver. 3. Pancreas obscured by overlying bowel gas.
== END 2025-01-18 07:41 | disposition home or self-care (01) ==
LOC: RAD 07:43
PROVIDERS: PCP Family Medicine; Visit Provider Internal Medicine Gastroenterology
DX: R10.32 Left lower quadrant pain (principal); R11.0 Nausea; Z86.19 Personal history of other infectious and parasitic diseases; K58.9 Irritable bowel syndrome, unspecified; K76.0 Fatty (change of) liver, not elsewhere classified
CPT/HCPCS: 76705

== ENCOUNTER → 2025-01-22 10:30 | Outpatient (BNVA) | payer MEDICARE, SELFPAY | PROVIDERS: PCP Family Medicine; Visit Provider Anesthesiology Pain Medicine | DX: M48.062 Spinal stenosis, lumbar region with neurogenic claudication (principal); M51.16 Intervertebral disc disorders with radiculopathy, lumbar region; M47.816 Spondylosis without myelopathy or radiculopathy, lumbar region | CPT/HCPCS: 99214 ==

== ENCOUNTER → 2025-02-26 15:43 | Outpatient (BNVA) | payer MEDICARE, SELFPAY | PROVIDERS: PCP Family Medicine; Visit Provider Nurse Practitioner Family | DX: D22.5 Melanocytic nevi of trunk (principal); L85.8 Other specified epidermal thickening; L59.0 Erythema ab igne [dermatitis ab igne]; L30.9 Dermatitis, unspecified | CPT/HCPCS: 11102; 99213 ==

== ENCOUNTER → 2025-03-04 10:26 | Outpatient (BNVA) | payer MEDICARE, SELFPAY | PROVIDERS: PCP Family Medicine; Visit Provider Student in an Organized Health Care Education/Training Program | DX: K50.90 Crohn's disease, unspecified, without complications (principal); K27.9 Peptic ulcer, site unspecified, unspecified as acute or chronic, without hemorrhage or perforation | CPT/HCPCS: 99214 ==

== ENCOUNTER → 2025-03-13 09:51 | Outpatient (BNVA) | payer MEDICARE, SELFPAY | PROVIDERS: PCP Family Medicine; Visit Provider Internal Medicine | DX: R68.89 Other general symptoms and signs (principal); R63.5 Abnormal weight gain; E16.2 Hypoglycemia, unspecified | CPT/HCPCS: 99214 ==

== ENCOUNTER → 2025-06-27 08:36 | Outpatient (BNVA) | payer MEDICARE, SELFPAY | PROVIDERS: PCP Family Medicine; Visit Provider Student in an Organized Health Care Education/Training Program | DX: K52.9 Noninfective gastroenteritis and colitis, unspecified (principal); R03.0 Elevated blood-pressure reading, without diagnosis of hypertension; R10.30 Lower abdominal pain, unspecified | CPT/HCPCS: 99214 ==

== ENCOUNTER → 2025-07-23 09:57 | Outpatient (BNVA) | payer MEDICARE, SELFPAY | PROVIDERS: PCP Family Medicine; Visit Provider Anesthesiology Pain Medicine | DX: M48.062 Spinal stenosis, lumbar region with neurogenic claudication (principal); M51.16 Intervertebral disc disorders with radiculopathy, lumbar region; M47.26 Other spondylosis with radiculopathy, lumbar region | CPT/HCPCS: 99214 ==

== ENCOUNTER 2025-08-06 06:23 | Day surgery (SDC) | payer MEDICARE, SELFPAY ==
[2025-08-06 06:35] VITALS: BP 135/98; PULSE 107; RESP 18; TEMP 36.1; O2SAT 98; BMI 30.5
--- NOTE | 2025-08-06 06:44 | ANES.PREANE2 ---
Pre-Anesthetic Assessment Height/Weight: Height 1.78 m Weight 96.615 kg Temp Pulse Resp BP Pulse Ox O2 Del Method 97.0 F L 107 H 18 135/98 98 Room Air 08/06/25 06:35 08/06/25 06:35 08/06/25 06:35 08/06/25 06:35 08/06/25 06:35 08/06/25 06:35 Preop Diagnosis: screening Operation Date: 08/06/25 07:30 Proposed Procedures p EGD EGD with Biopsy [id number] K52.9(Not Applicable) - Richie Foster MD s Colonoscopy(Not Applicable) - Richie Foster MD Familial anesthetic complications: none Was Beta Carlos taken within 24 hours: N/A Was Clonidine taken within 24 hours: N/A Last intake: Intake Last Liquid Date 08/05/25 Last Liquid Time 20:00 Last Solid Date 08/04/25 Last Solid Time 20:00 Last Intake: 23:00 Exam oriented x 3 Airway Submandibular: within normal limits Cervical ROM: within normal limits Mallampati: Class II Dentition: full History/ROS No significant history except as noted Pulmonary None reported CV/HEM None reported None reported Hepatic None reported GI Gastroesophageal Reflux Disease Metabolic None reported Musc/skel None reported Neuropsych None reported Anesthetic Plan ASA status: 2 Anesthesia: Anesthesia Evaluation Risk of > 500 ml blood loss (7ml/kg in children): No Medications/Allergies Home Medications ?Medication ?Instructions ?Recorded ?Confirmed ?Last Taken ?Type levocetirizine 5 mg tablet (Xyzal) 5 mg PO QAM 01/05/22 07/30/25 07/29/25 History albuterol sulfate 2.5 mg/3 mL 2.5 mg inhalation TID PRN 08/04/22 07/30/25 Unknown History (0.083 %) solution for nebulization Shortness Of Breath albuterol sulfate 90 mcg/actuation 2 puff inhalation QID PRN 08/04/22 07/30/25 1 Week Ago History aerosol inhaler Shortness Of Breath ~07/23/25 montelukast 10 mg tablet 10 mg PO QAM 08/04/22 07/30/25 07/29/25 History (Singulair) ondansetron HCl 8 mg tablet 8 mg PO Q8H PRN Nausea And Vomiting 08/04/22 07/30/25 07/29/25 History fluticasone propionate 50 2 spray intranasal DAILY #16 grams 12/15/22 07/30/25 Unknown Rx mcg/actuation nasal spray,suspension pantoprazole 40 mg tablet,delayed 40 mg PO BID 30 days #60 tabs 03/04/25 07/30/25 07/28/25 Rx release Allergies Allergy/AdvReac Type Severity Reaction Status Date / Time acetaminophen (From Percocet) Allergy Severe itching Verified 07/30/25 12:26 oxycodone (From Percocet) Allergy Severe itching Verified 07/30/25 12:26 hydrocodone Allergy ADR-Itching Verified 07/30/25 12:26 [facility] Anesthesia Medical History Lactose intolerance Gastroenteritis Low back pain H/O Helicobacter infection Allergic rhinitis GERD (gastroesophageal reflux disease) H/O methicillin resistant Staphylococcus aureus Surgical History H/O colonoscopy 07/29/16 Recheck in 10 years H/O esophagogastroduodenoscopy 07/29/16 H/O circumcision Family History Other Adopted Social History Smoking and tobacco/nicotine status: tobacco/nicotine user, details unknown Second hand smoke exposure: No Alcohol intake: never Substance/Drug Use: never Adopted: Yes Lives independently: Yes Marital status: Single Current occupational status: disabled
--- NOTE | 2025-08-06 07:00 | W.PM.OPSFHP ---
Same Day Surgery H&P Indication for Procedure/HPI DATE OF PROCEDURE: August 06, 2025 CHIEF COMPLAINT/INDICATIONFOR SURGICAL PROCEDURE: heartburn, changes in bowel habits PREOP DIAGNOSIS: heartburn, changes in bowel habits PLANNED PROCEDURE: Operation Date: 08/06/25 07:30 Proposed Procedures p EGD EGD with Biopsy [id number] G0105 K52.9(Not Applicable) - Richie Foster MD s Colonoscopy(Not Applicable) - Richie Foster MD Medications/Allergies* Home Medications ?Medication ?Instructions ?Recorded ?Confirmed ?Type levocetirizine 5 mg tablet (Xyzal) 5 mg PO QAM 01/05/22 07/30/25 History albuterol sulfate 2.5 mg/3 mL 2.5 mg inhalation TID PRN 08/04/22 07/30/25 History (0.083 %) solution for nebulization Shortness Of Breath albuterol sulfate 90 mcg/actuation 2 puff inhalation QID PRN 08/04/22 07/30/25 History aerosol inhaler Shortness Of Breath montelukast 10 mg tablet 10 mg PO QAM 08/04/22 07/30/25 History (Singulair) ondansetron HCl 8 mg tablet 8 mg PO Q8H PRN Nausea And Vomiting 08/04/22 07/30/25 History Allergies/Adverse Reactions Allergy/AdvReac Type Severity Reaction Status Date / Time acetaminophen (From Percocet) Allergy Severe itching Verified 08/06/25 06:52 oxycodone (From Percocet) Allergy Severe itching Verified 08/06/25 06:52 hydrocodone Allergy ADR-Itching Verified 08/06/25 06:52 Current Medications: Generic Name Dose Route Start Last Admin Trade Name Freq PRN Reason Stop Dose Admin Sodium Chloride 1,000 mls @ 15 mls/hr 08/06/25 06:31 08/06/25 06:51 Sodium Chloride 0.9% IV 08/07/25 06:30 15 mls/hr .Q24H PRN Administration COLONOSCOPY FLUIDS Pertinent History/Comorbid Conditions* Medical History (Updated 06/30/25 @ 13:00 by Richie Foster MD) Lactose intolerance Gastroenteritis Low back pain H/O Helicobacter infection Allergic rhinitis GERD (gastroesophageal reflux disease) H/O methicillin resistant Staphylococcus aureus Surgical History (Updated 05/19/20 @ 15:27 by Payton Le) H/O colonoscopy 07/29/16 Recheck in 10 years H/O esophagogastroduodenoscopy 07/29/16 H/O circumcision Family History (Updated 04/09/20 @ 13:16 by Ritu Wolf LPN) Adopted Social History Smoking and tobacco/nicotine status: tobacco/nicotine user, details unknown Second hand smoke exposure: No Alcohol intake: never Substance/Drug Use: never Adopted: Yes Lives independently: Yes Marital status: Single Current occupational status: disabled Pertinent Exam Findings alert, oriented x 3, clear to auscultation bilaterally, regular rate & rhythm and procedure specific exam findings abdomen soft, nt, nd Recommendations Risks and benefits of procedure reviewed and Patient/family agree to proceed Surgery/Procedure today Other Plans: I have explained the risks and benefits of a diagnostic EGD with biopsy and the patient agrees to proceed. I have explained the risks and benefits of a diagnostic colonoscopy and the patient agrees to proceed. Patient understands that hemoccult is not an alternative in this case and decides to proceed with colonoscopy. Had an extensive discussion with the patient. Answered all questions. Patient understands that the risks include a 1% risk of iatrogenic perforation and risk of aspiration. Coding Level of Care Code Acute Code for Chg Fwd
[2025-08-06 07:55] VITALS: BP 126/94; PULSE 105; RESP 16; TEMP 36.3; O2SAT 94
[2025-08-06 08:06] VITALS: BP 118/92; PULSE 108; RESP 16; O2SAT 94
--- NOTE | 2025-08-06 08:31 | ANE.PACU2 ---
Inpatient post-anesthesia follow up: Airway intact: Yes Vital signs: Temperature 97.4 F Pulse Rate 108 Respiratory Rate 16 Blood Pressure 118/92 Pulse Oximetry 94 Oxygen Delivery Me thod Room Air Oxygen Flow Rate Fraction of Inspir ed Oxygen Hydration adequate: Yes Nausea and vomiting: No Pain level: 1 Mental status: Baseline
== END 2025-08-06 08:30 | disposition home or self-care (01) ==
PROVIDERS: PCP Family Medicine; Visit Provider Student in an Organized Health Care Education/Training Program
PROC: 0DJ08ZZ Inspection of Upper Intestinal Tract, Via Natural or Artificial Opening Endoscopic (ICD-10-PCS; principal; 2025-08-06 07:30)
PROC: 0DJD8ZZ Inspection of Lower Intestinal Tract, Via Natural or Artificial Opening Endoscopic (ICD-10-PCS; CPT 45378; 2025-08-06 07:30)
DX: R19.4 Change in bowel habit (principal); R12 Heartburn; K29.30 Chronic superficial gastritis without bleeding; K21.9 Gastro-esophageal reflux disease without esophagitis; F17.200 Nicotine dependence, unspecified, uncomplicated
CPT/HCPCS: 43239; 45380; 88305; 88342; J2704; J3490; J7030